=== PATIENT | female | born 1940 | race Caucasian/White ===

== ENCOUNTER 2019-08-06 13:30 | Outpatient (RCR) | payer MEDICARE, SELFPAY ==
--- NOTE | 2019-06-21 14:06 | HP.PTEVAL ---
Patient's Visit Information GENEVA ORDOÑEZ is a 79 year old F referred to Physical Therapy by Bala Downs MD with a diagnosis of vertigo. Date of Evaluation: 06/21/19 Physical Therapist: Jaret Fontaine, BRYANNAT, OCS, CSCS - Visit Plan Frequency: 1-2x /Week Duration: 2-4 Weeks Plan: treated with R Rene, monitor need for further positional...Balance. Oculomotor as needed as positional test was based on dizzyness, not nystagmus. - Subjective Findings: Had vertigo for two or three weeks. Started insidiously. Woke up with it. Getting out of bed made her unsteady and needed to grab the wall. Lasted 15 minutes then wall to get around. Described as unsteady adn lightheaded. Called doctor and tried a couple meds and some walking. Is not improving. No diagnostics. Symptoms comes and goes. Happens if stands up too fast gets dizzy for a number of seconds. Rolling in bed can give her the same feeling. Mobile home is her home and no AD needed. NO falls. Holds on to things. drove her today. Not employed, retired. Sleeping OK most of time. Sleepy with meds. Gets this dizzy feeling daily 3-4x. - Objective Walks slow but steady on firm flat surface. Trasnfers I. ALEXYS is wide. c/s AROM is limited to 25 ext, 45 rotation B with some discomfort. - L hallpike. + R hallpike for asymmetrical dizzyness and treated with R Rene adn then - test. - Balance Scores Functional Gait Assessment Score: 22 % Disability: 26.6700 - Goals Goal 1:: abolish vertigo feeling x 3 days Goal Time Frame: 2-4 Weeks Goal 2:: FGA 25 to reduce fall risk Goal Time Frame: 4-6 Weeks - Rehabilitation Potential Physical Therapy Diagnosis: vertigo possibly BPPV Rehabilitation Potential: Fair - Anticipated Interventions Patient/Client Instruction: Educate patient on: Condition, Plan of Care, Risk Factors For the Purpose of:: To increase tolerance to activity/condition/position Comment: positonal, balance and vestibular as needed. For the Purpose of:: To increase tolerance to activity/condition/position, To improve gait and locomotor functions Thank you for the opportunity to evaluate your patient. For Medicare and Medicare HMO plans, please review the plan of care and approve it. It will need to be FAXED BACK to us at [phone] for Medicare purposes. For Medicare only, by signing this I certify the plan of care. Please let me know if there are questions or concerns regarding this plan of care. Physician Signature: Date:
--- NOTE | 2019-06-25 15:50 | HP.PTREVAL ---
Bala Downs MD, It has been my pleasure to treat GENEVA ORDOÑEZ over the last 2 visits for vertigo. Please see the progress note below for an update on the physical therapy plan of care! Subjective: Not in any pain. Dizzyness is not as bad. Using cane feels steadier. Doesn't feel as dizzy stadning up. Not as consistent dizzyness. No other dizzyness. Unsteady intermittently usually getting out of bed in am. It lasts until she moves a little bit. Objective/Function: - B hallpike and - roll test. Oculomotor is unremarkable: no nystagmus with gaze or head shake, Saccades adn pursuit are challenging but asymptomatic. Vor is asymptomatic and not fast. - skew eye deviation. MSQ positions do not cause her dizzyness today. Feels unsteady today but not dizzy. Walks with cane mod I. Without cane is good today on firm flat surface but hesitant. Plan Plan: 2x/week for 4 weeks to wrok on balance, weight shifting, foam, VOR balance and gait with head mvoements. Progress to HEP as safety allows. Monitor for dizzyness in the form of spinning adn let therapist know if it returns for positional checks Goals Goal 1:: abolish vertigo feeling x 3 days Goal Time Frame: 2-4 Weeks Goal 2:: FGA 25/30 to reduce fall risk Goal Time Frame: 4-6 Weeks Goal Progress: Progressing Anticipated Interventions Patient/Client Instruction: Educate patient on: Condition, Plan of Care, Risk Factors For the Purpose of:: To increase tolerance to activity/condition/position Comment: positonal, balance and vestibular as needed. For the Purpose of:: To increase tolerance to activity/condition/position, To improve gait and locomotor functions Please do not hesitate to contact me at [phone] by phone or if you have questions or concerns regarding this new plan of care! Sincerely, Jaret Fontaine, DPT, OCS, CSCS
--- NOTE | 2019-07-27 15:45 | HP.PTREVAL ---
Bala Downs MD, It has been my pleasure to treat GENEVA ORDOÑEZ over the last 6 visits for vertigo. Please see the progress note below for an update on the physical therapy plan of care! Subjective: Better. No more dizzyness. Balance feels better. Driving now and then short ditances. drove her. Steps at daughters house still require rail. Exercises at home include walking. To doctor month. Would like to make up two sessions then should be good. Objective/Function: +2 FGA. No dizzyness. Doing better. Wants to make up 2 missed visits adn D/C Plan Plan: 2 visits with [employer]PER[employer] to teach home balance adn VOR exercises then will d/c to HEP. Goals Goal 1:: abolish vertigo feeling x 3 days Goal Time Frame: 2-4 Weeks Goal Progress: Goal Met Goal 2:: FGA 25/30 to reduce fall risk Goal Time Frame: 4-6 Weeks Goal Progress: Progressing Anticipated Interventions Patient/Client Instruction: Educate patient on: Condition, Plan of Care, Risk Factors For the Purpose of:: To increase tolerance to activity/condition/position Comment: positonal, balance and vestibular as needed. For the Purpose of:: To increase tolerance to activity/condition/position, To improve gait and locomotor functions Please do not hesitate to contact me at [phone] by phone or if you have questions or concerns regarding this new plan of care! Sincerely, Jaret Fontaine, DPT, OCS, CSCS
== END 2019-08-06 19:00 | disposition home or self-care (01) ==
LOC: PT 13:30
PROVIDERS: Family Provider Internal Medicine; PCP Family Medicine; Referring Provider Family Medicine; Visit Provider Family Medicine
DX: R42 Dizziness and giddiness (principal)
CPT/HCPCS: 97110; 97161; 97530

== ENCOUNTER → 2020-06-15 17:18 | Outpatient (CLI) | payer MEDICARE, SELFPAY | PROVIDERS: PCP Physician Assistant; Referring Provider Registered Nurse; Visit Provider Registered Nurse | DX: Z20.828 Contact with and (suspected) exposure to other viral communicable diseases (principal) | CPT/HCPCS: 87635; C9803; U0003 ==

== ENCOUNTER 2020-10-26 07:37 | Outpatient (RCR) | payer MEDICARE, SELFPAY ==
[2015-12-12 17:49] VITALS: BMI 27.7
[2020-10-26] MEDS: COVID-19 VACC, MRNA(PFIZER)/PF 30 MCG/0.3 ML SYRINGE IM (14:30)
[2020-11-16] MEDS: COVID-19 VACC, MRNA(PFIZER)/PF 30 MCG/0.3 ML SYRINGE IM (14:25)
== END 2021-01-23 23:59 ==
LOC: IMMUN 07:37
PROVIDERS: PCP Physician Assistant; Referring Provider Family Medicine; Visit Provider Family Medicine
DX: Z23 Encounter for immunization (principal)
CPT/HCPCS: 0001A; 0002A; 91300

== ENCOUNTER 2021-06-11 14:35 | Emergency (ER) | payer MEDICARE, SELFPAY ==
[2021-06-11 14:36] VITALS: BP 147/62; PULSE 68; RESP 16; TEMP 36.4; O2SAT 100; BMI 28.3
--- NOTE | 2021-06-11 15:07 | ED.VIS.GI ---
HPI HPI - GI History of Present Illness Chief Complaint: Other, Pain/Inj Detail of Chief Complaint: Hematochezia Informant: patient Abdominal Pain/Flank Pain Onset: Yesterday Context: Sudden Onset Timing: Intermittent Quality: - (Painless bright red blood with bowel movement) Location: - (History of hemorrhoids) Current Severity: Moderate Maximum Severity: Moderate Worsened by: Nothing Relieved by: Nothing Nausea/Vomiting/Emesis GI Symptom: Negative for Nausea and Vomiting Diarrhea/Melena/Hematochezia GI Symptom: Positive for Hematochezia; Negative for Diarrhea and Melena Onset: Yesterday Associated Symptoms Associated Symptoms: Negative for Dysuria, Frequency and Hematuria LMP: Postmenopausal Narrative Narrative: Patient is an 81-year-old woman on a baby aspirin who presents with bright red blood per rectum. First noted yesterday. She does have history of hemorrhoids. She denies history of diverticulosis or diverticulitis. She denies orthostatic symptoms. Denies abdominal pain. Denies rectal pain. She is not complaining of bruising easily. She denies blood in her urine. Denies bleeding of her gums. Prior similar symptoms: Yes Recent Illness/Hospitalization: No PFSH PFSH Allergy/AdvReac Type Severity Reaction Status Date / Time Sulfa (Sulfonamide Allergy Rash Verified 06/11/21 14:37 Antibiotics) Influenza Virus Vaccines AdvReac Other Verified 06/11/21 14:37 Social History (Updated 06/11/21 @ 15:[address] Ihsan Dimas MD) household members: none Smoking Status: Never smoker substance use type: does not use seatbelt use: always ROS ROS ED Constitutional Constitutional ED: Denies chills, fever(s), subjective or sweats Cardiovascular Cardiovascular: Denies chest pain Respiratory/Chest Respiratory/Chest: Denies dyspnea or dyspnea on exertion Gastrointestinal Gastrointestinal: Denies abdominal pain, constipation, diarrhea, melena, nausea or vomiting Genitourinary Genitourinary ED: Denies dysuria, hematuria or urinary frequency Musculoskeletal Musculoskeletal: Denies back pain or neck pain Neurologic Neurologic: Denies paresthesias or weakness Hematologic/Lymphatic Hematologic/Lymphatic: Denies easy bleeding or easy bruising EXAM Physical Exam Const Vital Signs: 06/11/21 14:36 Temperature 97.6 F L Temperature Source Temporal Pulse Rate 68 Respiratory Rate 16 Blood Pressure 147/62 H Blood Pressure Mean 90 Pulse Ox 100 Positive well nourished, well developed and obese; Negative for cachectic, contractures or unkempt General Appearance ED: well developed and NAD; Negative for unkempt, cachectic, contractures or pallor Nutritional Appearance: obese; Negative for cachectic HEENT Reports moist mucous membranes normocephalic and atraumatic Eyes PERRL and EOMs intact bilaterally General Eye ED: Negative for pale conjunctiva or scleral icterus Neck no lymphadenopathy, supple and no JVD Cardio regular rate, regular rhythm, S1 normal heart sound, S2 normal heart sound and no murmurs GI non-tender, non-distended and no masses GI Narrative: Patient has cluster of hemorrhoids. They are not thrombosed. There was no discomfort on rectal exam. Stool is brown. There is no active bleeding noted at this time. Auscultation: normoactive bowel sounds Palpation: soft Back/Spine no CVA tenderness Extremity full ROM General Extremety ED: Negative for edema or tenderness General Extremity: Negative for edema Psych mental status grossly normal Appearance: Negative for unkempt Skin no wounds General Skin Exam: Negative for jaundice or pallor Lesions: no lesions Rashes: no rashes MDM MDM MDM Narrative Medical decision making narrative: Patient presents with hematochezia due to hemorrhoids. Her physicians are affiliated with [facility]. She was referred to Dr. Ro who is on-call for surgery. Work-up is not indicated. Discharge Plan Triage Chief Complaint: Other, Pain/Inj ED Provider: Ihsan Dimas Dx/Rx/DC Orders Clinical Impression: Bleeding external hemorrhoids Instructions: ED Hemorrhoids Primary Care Provider: Argentina Madison Referrals: Basil Ro MD [STAFF PHYSICIAN] - 1-2 Weeks Argentina Madison PA [Primary Care Provider] - Disposition Disposition: Home, Self Care
== END 2021-06-11 15:23 | disposition home or self-care (01) ==
LOC: ED 15:18
PROVIDERS: Emergency Provider Emergency Medicine; PCP Physician Assistant
DX: K64.4 Residual hemorrhoidal skin tags (principal); E66.9 Obesity, unspecified
CPT/HCPCS: 99282

== ENCOUNTER 2022-12-06 09:55 | Observation (INO) | payer MEDICARE, SELFPAY ==
[2022-12-06 09:55] VITALS: BP 170/60; PULSE 85; RESP 20; TEMP 36.9; O2SAT 96; BMI 24.3
--- NOTE | 2022-12-06 10:12 | RAD_ITS ---
STUDY: X-RAY - LEFT KNEE REASON FOR EXAM: Female, 82 years old. Pain following a fall. TECHNIQUE: 4 view(s) of the knee. COMPARISON: None. FINDINGS: Normal visualized distal femur. Normal visualized proximal tibia and fibula. Normal proximal tibiofibular articulation. There is mild degenerative arthrosis of the medial femorotibial compartment. There is mild degenerative arthrosis of the lateral femorotibial compartment. Normal patellofemoral articulation. Chondrocalcinosis of the medial and lateral menisci. The soft tissue structures are unremarkable. RAD/Knee 3 Views IMPRESSION: Degenerative arthrosis. Chondrocalcinosis of the medial and lateral menisci. Electronically Signed: Errol Samano MD at 10:53 EDT ,
--- NOTE | 2022-12-06 10:14 | ED.VIS.FALL ---
HPI HPI - Fall History of Present Illness Chief Complaint: Fall Detail of Chief Complaint: Fell at home getting up from a chair in her kitchen. Informant: patient and EMS Occured/Mechanism Occurred: Today and Hours Mechanism/Context: Yes same level fall and Yes cannot recall fall Pain/Injury Pain Location: head and lower extremity Quality of Pain: Dull and Aching Current Severity: Mild Maximum Severity: Mild Narrative Narrative: 82-year-old female history of hypertension. Lives at home with her . Today was at the breakfast table. She went to stand up and think she lost her balance landed on the kitchen floor which is carpeted on her knees and and fell back and hit her head. She thinks she hit her head on the floor. No LOC. No blood thinners. She does have a laceration. She is complaining of knee discomfort. Denies any neck pain. Denies any recent illness or hospitalization. Tetanus Immunization: >10 years Prior similar symptoms: No Recent Illness/Hospitalization: No PFSH PFSH Medical History (Updated 12/06/22 @ 15:[address] Anselmo Santana MD) Fall Allergy/AdvReac Type Severity Reaction Status Date / Time Sulfa (Sulfonamide Allergy Rash Verified 12/06/22 09:55 Antibiotics) Influenza Virus Vaccines AdvReac Other Verified 12/06/22 09:55 Social History household members: none Smoking Status: Never smoker substance use type: does not use seatbelt use: always ROS ROS ED ROS Narrative Denies recent illness. Review of Systems ROS Unobtainable: Denies due to encephalopathy Constitutional Constitutional ED: Denies chills or fever(s) Eyes Eyes: Denies blurry vision ENT ENT ED: Denies ear pain Cardiovascular Cardiovascular: Denies chest pain Respiratory/Chest Respiratory/Chest: Denies cough Gastrointestinal Gastrointestinal: Denies abdominal pain Genitourinary Genitourinary ED: Denies dysuria Musculoskeletal Musculoskeletal: Denies arthralgias, back pain or neck pain Integumentary Denies abscess Neurologic Neurologic: Denies headache(s) Psychiatric Psychiatric: Denies anxiety or depression Hematologic/Lymphatic Hematologic/Lymphatic: Denies easy bleeding Allergic/Immunologic Allergic/Immunologic ED: Denies mouth swelling EXAM Physical Exam Narrative Exam Narrative: 82-year-old female no acute distress. Vital signs stable afebrile. She is in the room alone. H EENT exam pupils round reactive light. She has dried blood on her scalp and hair I cannot currently see the laceration at this will need to be cleaned off the final laceration evaluated better. There is no facial trauma. Dentition intact. Pupils round reactive light. C-spine nontender. Trachea midline. Back spine nontender posterior ribs nontender. No signs of trauma. Chest wall and ribs nontender. Lungs are clear. Heart regular rhythm no murmur rate about 85. Abdomen soft nontender. Pelvic girdle intact. Normal financial foundations associate strength. Wrist, elbows and shoulders are nontender without deformity. Hips ankles and feet are nontender normal dorsi plantarflexion. She has tenderness and redness to both knees anteriorly. No gross bony deformity. Limited flexion due to discomfort. Neurologically she is awake and alert. Answering questions and following commands. Const Vital Signs: 12/06/22 09:55 12/06/22 10:23 12/06/22 12:02 Temperature 98.5 F Temperature Source Oral Pulse Rate 85 87 Respiratory Rate 20 H 16 Respiratory Effort Normal Non-Labored Respiratory Depth Normal Respiratory Pattern Normal Blood Pressure 170/60 H 162/78 H Blood Pressure Mean 96 106 Pulse Ox 96 98 Oxygen Delivery Method Room Air 12/06/22 14:47 Temperature 97.8 F Temperature Source Oral Pulse Rate 76 Respiratory Rate 18 Respiratory Effort Respiratory Depth Respiratory Pattern Blood Pressure 175/62 H Blood Pressure Mean 99 Pulse Ox 97 Oxygen Delivery Method Room Air Positive well nourished and well developed; Negative for cachectic, contractures or unkempt General Appearance ED: well developed and NAD; Negative for unkempt, cachectic or contractures Nutritional Appearance: Negative for cachectic HEENT Reports normocephalic HEENT Narrative: Scalp laceration. Dried blood. trauma; Negative for atraumatic Eyes PERRL and EOMs intact bilaterally General Eye ED: Negative for pale conjunctiva or scleral icterus Neck full ROM, no lymphadenopathy and supple General: Negative for tenderness Chest Wall inspection of chest normal and palpation of chest normal Chest: Negative for other Resp normal respiratory effort, no retractions and clear to auscultation bilaterally Effort and Inspection: Negative for pain with movement Auscultation: Negative for rales, rhonchi or wheezes Cardio regular rate, regular rhythm, S1 normal heart sound, S2 normal heart sound and no murmurs Rate: Negative for bradycardia or tachycardic Rhythm: Negative for abnormal rhythm GI non-tender, non-distended and no masses Inspection: Negative for abdominal distention Auscultation: normoactive bowel sounds Palpation: soft; Negative for guarding Back/Spine no CVA tenderness General Back: Negative for CVA tenderness Cervical Spine: Negative for cervical spine tenderness Lumbar Spine / Lower Back: Negative for lumbar spinal tenderness or paraspinal muscle tenderness Neuro moves all extremities and no focal motor deficits Sensorium / Orientation: alert, oriented to person and oriented to place Motor Exam: strength 5/5 throughout Psych mental status grossly normal and thought process normal Appearance: Negative for unkempt Attitude: No agitated Mood & Affect: Negative for depressed, anxious or tearful Skin Skin Narrative: Scalp laceration. Lesions: no lesions Rashes: no rashes Trauma: laceration MDM MDM MDM Narrative Medical decision making narrative: 82-year-old fell at home hit her head causing a scalp laceration. Also injuring both knees. CAT scan of her brain will be obtained to rule out intracranial bleed. X-rays of knees will be obtained to rule out fracture. We will clean her scalp reevaluate the laceration determine if it needs suture repaired. Her tetanus is being updated. Patient will eventually be ambulated to see if she is strong enough to walk to determine if she will be able to be discharged home. After I repaired the patient's scalp laceration the nurses got up and ambulated her. Patient needed a lot of assistance. I walking back to the room she got weak, her knees buckled and the nurses lowered her to the floor. She did not fall or get injured but they said she was too weak to stand on her own. They were able to get her back in bed. Screening labs are being obtained. Given the elevated white counts the hospitalist wanted me to obtain urinalysis and chest x-ray which are being ordered. Due to the patient's dehydration she will be given a liter of normal saline. She will be admitted to a medical floor. I discussed test results with the patient and her . He is now present in the room. We attempted to admit the patient to the transitional care unit but were unable due to her insurance status. community organization worker was consulted and that is what was determined. History & Record Review Discussion w/independent historian: EMS personnel and Patient Lab Data Attestation: I reviewed the patient's lab results. Lab results narrative: CBC shows a white count 18.4. H&H 15 and 44. Platelets 316. Electrolytes show a gap of 4. BUN is elevated 29 creatinine of 1 consistent with mild dehydration. Glucose 132. Chest x-ray negative. Urine 5-10 red cells. 10-25 white cells. No epithelial cells. 3+ bacteria consistent with UTI. Culture will be sent. Labs: Laboratory Results - last 24 hr 12/06/22 12/06/22 12/06/22 12:35 12:35 14:40 WBC 18.4 H RBC 4.65 Hgb 15.0 Hct 44.0 MCV 94.6 MCH 32.3 H MCHC 34.1 RDW Std Deviation 46.3 H RDW Coeff of Lisa 13.4 Plt Count 316 MPV 10.6 Immature Gran % (Auto) 0.500 Neut % (Auto) 89.9 H Lymph % (Auto) 3.7 L [place] % (Auto) 5.7 Eos % (Auto) 0.0 Baso % (Auto) 0.2 Absolute Neuts (auto) 16.6 H Absolute Lymphs (auto) 0.68 L Nucleated RBC % 0 Sodium 141 Potassium 3.8 Chloride 109 H Carbon Dioxide 28.0 Anion Gap 4 L BUN 29 H Creatinine 1.01 Estim Creat Clear Calc 37.72 Est GFR (MDRD) Af Amer 68 Est GFR (MDRD) Non-Af 56 L BUN/Creatinine Ratio 28.7 H Glucose 132 H Calcium 10.5 H Urine Color Yellow Urine Clarity Sl. Cloudy Urine pH 5.0 Ur Specific [place] 1.030 Urine Protein 500 H Urine Glucose (UA) 50 H Urine Ketones 50 H Urine Occult Blood 250 H Urine Nitrite Negative Urine Bilirubin 1 H Urine Urobilinogen Normal Ur Leukocyte Esterase 25 H Urine RBC 5-10 SEEN Urine WBC 10-25 SEEN Ur Squamous Epith Cells 0-5 SEEN Urine Bacteria 3+ Hyaline Casts 5-10 SEEN Urine Mucus 0 SEEN Radiography Chest X-Ray - ED: 1 View, Read by ED Physician, Normal, Heart, Lungs, Mediastinum, Bony Structures, No Acute Disease and Chronic Changes Diagnostic Testing: Clinical Impression(s) from Imaging Studies Knee X-Ray 12/06/22 10:12 IMPRESSION: Degenerative arthrosis. Chondrocalcinosis of the medial and lateral menisci. Electronically Signed: Errol Samano MD at 10:53 EDT , Knee X-Ray 12/06/22 10:16 IMPRESSION: Degenerative arthrosis. Chondrocalcinosis of the medial and lateral menisci. Electronically Signed: Errol Samano MD at 10:52 EDT , Brain CT 12/06/22 10:35 IMPRESSION: Chronic involutional changes of the brain. Electronically Signed: Errol Samano MD at 10:51 EDT , Chest X-Ray 12/06/22 13:59 IMPRESSION: No acute abnormality is seen. Electronically Signed: Errol Samano MD at 14:14 EDT , Right knee x-ray, interpreted by myself and the radiologist. Shows chronic changes no acute fracture. 3 views. Left knee x-ray, interpreted by myself and the radiologist shows chronic changes no acute fracture. 3 views. Chest x-ray, portable, single view, interpreted by myself shows no acute abnormality. Normal cardiac silhouette mediastinum. No infiltrates. Procedures Lacerations Right lateral, frontal forehead laceration approximately 1-1/2 to 2 inches: Length: 2 in Depth: Sub Q Shape: Linear Prep: Dot-Angela Laceration repair: Irrigated, Lidocaine, Local, Wound explored and - (6 kirk placed. Proper hemostasis and wound closure was obtained. Patient tolerated the procedure well.) Comment: Right frontal, forehead laceration. Approximately 1 and half to 2 inches. Local anesthetized with lidocaine. Cleaned with Shur-Clens. Washed and irrigated with saline. Explored. Involve the skin and subcu tissue. No foreign body. No bony step-off. No pulsatile bleeding. Closed using kirk. Tolerated well. Discharge Plan Triage Chief Complaint: Fall ED Provider: Anselmo Santana Dx/Rx/DC Orders Clinical Impression: Fall, Head injury, Laceration of scalp, Contusion of right knee, Contusion of left knee, Leukocytosis, Adult failure to thrive, Unable to ambulate, Urinary tract infection Instructions: ED Contusion, Lower Extremity, ED Head Injury (Adult), ED Laceration: All Closures Primary Care Provider: Argentina Madison Referrals: Argentina Madison, PA [Primary Care Provider] - 10 Day for suture removal Activity Restrictions/Additional Instructions: Keep the laceration on your right forehead clean. Clean daily with soap and water. Tylenol for pain. Ice to your knees. Your knee x-rays were okay there was nothing broken. The CAT scan of your brain looked good. There is no bleeding. We stapled the laceration of your right forehead. The kirk should come out no sooner than 7 days and no later than 10 days. Disposition Disposition: Home, Self Care
--- NOTE | 2022-12-06 10:16 | RAD_ITS ---
STUDY: X-RAY - RIGHT KNEE REASON FOR EXAM: Female, 82 years old. Pain following a fall. Anterior soft tissue abrasions. TECHNIQUE: 4 view(s) of the knee. COMPARISON: None. FINDINGS: Normal visualized distal femur. Normal visualized proximal tibia and fibula. Normal proximal tibiofibular articulation. There is mild degenerative arthrosis of the medial femorotibial compartment. Normal lateral femorotibial compartment. Normal patellofemoral articulation. Chondrocalcinosis of the medial and lateral menisci. The soft tissue structures are unremarkable. RAD/Knee 3 Views IMPRESSION: Degenerative arthrosis. Chondrocalcinosis of the medial and lateral menisci. Electronically Signed: Errol Samano MD at 10:52 EDT ,
[2022-12-06] MEDS: Diphth,Pertuss(Acell),Tet Vac 0.5 ML Vial IM (10:19)
--- NOTE | 2022-12-06 10:35 | CT_ITS ---
STUDY: CT BRAIN WITHOUT CONTRAST REASON FOR EXAM: Female, 82 years old. Head injury RADIATION DOSAGE (If Supplied By Facility): CTDIvol = ( 44.99 ) mGy, DLP = ( 812.98 ) mGycm TECHNIQUE: Transaxial CT imaging of the brain was performed without administration of intravenous contrast material. Individualized dose optimization techniques were used for this CT. COMPARISON: Comparison is made with prior examination November 21, 2012. FINDINGS: Normal soft tissue structures. There is hyperostosis frontalis internus. There is mild cerebral atrophy with widening of the extra-axial spaces and ventricular dilatation. Normal white matter tracts of the cerebral hemispheres. There are small punctate calcifications of the basal ganglia which are seen in the aging brain as a normal variant. Normal brainstem. Normal cerebellum. There is no intracranial hemorrhage. There are no findings of an acute ischemic infarction. Normal visualized paranasal sinuses. CT/Brain/Head without Contrast IMPRESSION: Chronic involutional changes of the brain. Electronically Signed: Errol Samano MD at 10:51 EDT ,
[2022-12-06 12:02] VITALS: BP 162/78; PULSE 87; RESP 16; O2SAT 98
[2022-12-06 12:56] LABS: Absolute Lymphocyte Count 0.68 X10^3/uL (0.83-4.51); Absolute Neutrophil Count 16.6 X10^3/uL (2.0-7.7); Basophil# 0.03 X10^3/uL; Basophil% 0.2 % (0-1); Lymphocyte # 0.68 X10^3/ul (0.83-4.51); Lymphocyte % 3.7 % (19-41); Mean Corp Hgb Conc 34.1 g/dL (32-36); Mean Corpuscular Hgb 32.3 pg (27.0-32.0); Mean Corpuscular Volume 94.6 fL (81-99); Mean Platelet Vol. 10.6 fl (6.2-12.0); Monocyte# 1.05 X10^3/uL; Monocyte% 5.7 % (0-10); NRBC Flagged by Analyzer 0 % (0-5); Neutrophil # 16.57 X10^3/uL (2.7-7.7); Neutrophil % 89.9 % (47-70); Platelet Count 316 K/mm3 (150-450); RBC Distribution Width CV 13.4 % (11.6-14.6); RBC Distribution Width SD 46.3 fl (35.1-43.9); Red Blood Count 4.65 M/mm3 (4.2-5.4); White Blood Count 18.4 K/mm3 (4.4-11.0)
--- NOTE | 2022-12-06 13:02 | ED.RN ---
social work saw pt. evaulated, needs precert for inpt therapy. dr vaughan aware to admitt
[2022-12-06 13:08] LABS: Anion Gap 4 (5-15); BUN 29 mg/dL (7-18); BUN/Creat Ratio 28.7 RATIO (10-20); Calcium,Total 10.5 mg/dL (8.5-10.1); Chloride 109 mmol/L (98-107); Creatinine, Serum 1.01 mg/dL (0.55-1.02); EST Glomerular Filtration Rate 56 mL/min (>60); Est Glom Filt Rate - Afr Amer 68 mL/min (>60); Estimated Creatinine Clearance 37.72 ml/min; Glucose 132 mg/dL (74-106); Potassium 3.8 mmol/L (3.5-5.1); Sodium Level 141 mmol/L (136-145)
--- NOTE | 2022-12-06 13:40 | HP.PCM.HOS_ITS ---
HPI - General General Date of Admission: 12/06/22 Date of Service: 12/06/22 HPI Narrative GENEVA ORDOÑEZ, is a 82 F with a PMH as outlined who presents via the ED on 12/06/2022 with a complaint of mechanical fall. She lives at home with her and tried getting up from the breakfast table. she thinks she lost her balance and fell down. She initially landed on her knees then fell over and hit her head. She thinks she hit her head on the floor. She denied any dizziness, lightheadedness, palpitations, nausea, vomiting or diuarrhea. She is not on any blood thinner. She did sustain a laceration on her head. Review of systems was otherwise negative. Vitals were BP of 162/78, WV of 87, RR of 16 and she was saturating at 98% on room air. CBC showed Hb of 15, wbc of 18.4 and platelets of 316. Chemistry showed sodium of 141, potassium of 3.8, Cr is 1 and BUN is 29. Calcium was 10.5. Plan was to discharge patient home, but she was very weak with ambulation, so decision was made to admit her. She is being admitted to be managed for debility due to mechanical fall. [facility], [facility] Medical History (Updated 12/06/22 @ 16:06 by Nata Villanueva) Dementia Fall Former smoker HTN (hypertension) Vision loss of left eye Vision loss of right eye Allergy/AdvReac Type Severity Reaction Status Date / Time Sulfa (Sulfonamide Allergy Rash Verified 12/06/22 09:55 Antibiotics) Influenza Virus Vaccines AdvReac Other Verified 12/06/22 09:55 Surgical History (Updated 12/06/22 @ 15:56 by Nata Villanueva) History of appendectomy Social History household members: none Smoking Status: Former smoker substance use type: does not use seatbelt use: always ROS Constitutional Constitutional: Reports fatigue, malaise and weakness; Denies anorexia, chills or fever(s) Eyes Eyes: Denies change in vision ENT HEENT: Denies dysphagia, headache(s) or nasal discharge Cardiovascular Cardiovascular: Denies chest pain, dyspnea on exertion, edema, lightheadedness, orthopnea, paroxysmal nocturnal dyspnea, rapid heart rate or syncope Gastrointestinal Gastrointestinal: Denies abdominal pain, constipation, diarrhea, nausea or vomit ing Genitourinary Genitourinary: Denies dysuria or urinary frequency Musculoskeletal Musculoskeletal: Denies arthralgias, back pain or joint pain Neurologic Neurologic: Denies confusion, dizziness, focal weakness or seizures Psychiatric Psychiatric: Denies anxiety or depression Hematologic/Lymphatic Hematologic/Lymphatic: Denies anemia Vital Signs Vital Signs Vital Signs: 12/06/22 09:55 12/06/22 10:23 12/06/22 12:02 Temperature 98.5 F Temperature Source Oral Pulse Rate 85 87 Respiratory Rate 20 H 16 Respiratory Effort Normal Non-Labored Respiratory Depth Normal Respiratory Pattern Normal Blood Pressure 170/60 H 162/78 H Blood Pressure Mean 96 106 Pulse Ox 96 98 Oxygen Delivery Method Room Air Weight Weight: 141 lb 12.116 oz Body Mass Index (BMI) 24.3 Physical Exam Const alert, oriented x3 and no apparent distress General Appearance: cooperative HEENT normocephalic HEENT Narrative: has a small laceration on the right temporal scalp region, which has been stapled. Eyes PERRL, EOMs intact bilaterally and conjunctivae normal Neck no lymphadenopathy, supple and no JVD Resp normal respiratory effort, no retractions, no use of accessory muscles and clear to auscultation bilaterally Cardio regular rate, regular rhythm, S1 normal heart sound, S2 normal heart sound and no murmurs GI normal to inspection, nondistended, normoactive bowel sounds, soft to palpation, non-tender and non-distended Extremity normal to inspection, full ROM and no clubbing, cyanosis or edema Neuro oriented x3, CN's II-XII intact bilaterally and moves all extremities Sensorium / Orientation: awake and alert Motor Exam: strength 5/5 throughout Psych affect normal Results Lab / Micro Data Result Diagrams: 12/06/22 12:35 12/06/22 12:35 Labs: Laboratory Results - last 24 hr 12/06/22 12:35: WBC 18.4 H, RBC 4.65, Hgb 15.0, Hct 44.0, MCV 94.6, MCH 32.3 H, MCHC 34.1, RDW Std Deviation 46.3 H, RDW Coeff of Lisa 13.4, Plt Count 316, MPV 10.6, Immature Gran % (Auto) 0.500, Neut % (Auto) 89.9 H, Lymph % (Auto) 3.7 L, [place] % (Auto) 5.7, Eos % (Auto) 0.0, Baso % (Auto) 0.2, Absolute Neuts (auto) 16.6 H, Absolute Lymphs (auto) 0.68 L, Nucleated RBC % 0 12/06/22 12:35: Sodium 141, Potassium 3.8, Chloride 109 H, Carbon Dioxide 28.0, Anion Gap 4 L, BUN 29 H, Creatinine 1.01, Estim Creat Clear Calc 37.72, Est GFR (MDRD) Af Amer 68, Est GFR (MDRD) Non-Af 56 L, BUN/Creatinine Ratio 28.7 H, Glucose 132 H, Calcium 10.5 H Radiology Impression Knee X-Ray 12/06/22 10:12 IMPRESSION: Degenerative arthrosis. Chondrocalcinosis of the medial and lateral menisci. Electronically Signed: Errol Samano MD at 10:53 EDT , Knee X-Ray 12/06/22 10:16 IMPRESSION: Degenerative arthrosis. Chondrocalcinosis of the medial and lateral menisci. Electronically Signed: Errol Samano MD at 10:52 EDT , Brain CT 12/06/22 10:35 IMPRESSION: Chronic involutional changes of the brain. Electronically Signed: Errol Samano MD at 10:51 EDT , Assessment & Plan Assessment/Plan (1) Head injury: (2) Laceration of scalp: (3) Fall: PLAN: Plan #Debility due to mechanical fall * says her knees gave way and she fell whilst getting up from the breakfast table * she denied any dizziness, lightheadedness or passing out * sustained a scalp laceration which has been sutured * consult PT/OT * fall precautions * * #RIght scalp laceration * due to mechanical fall * laceration sutured * PO tylenol and PO oxycodone prn for pain * #Mild hypercalcemia: Calcium is 10.5. Likely due to dehydration. Hydrate fluids and trend. DVT prophylaxis: SCDs CODE STATUS: Full code * Patient counseled extensively about different types of CODE STATUS including full code, DNR CCA and DNR CCA. Patient elects to be full code. * Total kltz-ce-isar time 17 minutes. Total time spent on evaluation and management of patient, reviewing chart and specialist notes, discussing plan with patient and his , discussion with nursing and ancillary staff as well as documentation: 65 mins Charges/Coding Visit Charges Inpatient E&M: 29944 Init Hosp L2 Procedures Hospitalists Procedures: 12661 Advncd Care Plan 30 Min
--- NOTE | 2022-12-06 13:59 | RAD_ITS ---
STUDY: X-RAY CHEST REASON FOR EXAM: Female, 82 years old. Weakness TECHNIQUE: Single AP portable view of the chest. COMPARISON: Comparison is made with prior chest radiograph dated December 12, 2015. FINDINGS: The lungs are clear and expanded. There is no demonstrated pleural abnormality. Normal size heart. Normal mediastinum and lynn. Normal visualized pulmonary arteries. There is atherosclerotic calcification of the aortic arch with tortuosity. There are diffuse degenerative changes of the visualized thoracic spine. Normal visualized ribs, clavicles, and shoulders. There is no demonstrated abnormality of the visualized soft tissue structures of the upper abdomen. RAD/Chest 1 View (Portable) IMPRESSION: No acute abnormality is seen. Electronically Signed: Errol Samano MD at 14:14 EDT ,
[2022-12-06] MEDS: 0.9% Normal Saline 1,000 ML 999 ML IV (14:45)
[2022-12-06 14:46] LABS: Mucous, Urine 0 SEEN /hpf (<or=2+)
[2022-12-06 14:47] VITALS: BP 175/62; PULSE 76; RESP 18; TEMP 36.6; O2SAT 97
[2022-12-06 14:50] LABS: Color, Urine Yellow (Yellow); Glucose, Dipstick 50 mg/dl (Normal); Ketone-Dipstick 50 mg/dl (Negative); Leukocyte Esterase-Dipstick 25 /ul (Negative); Nitrite-Dipstick Negative (Negative); Occult Blood-Urine 250 /ul (Negative); Protein-Dipstick 500 mg/dl (Negative); Urine Clarity Sl. Cloudy (Clear); Urine Urobilinogen Normal (Normal)
[2022-12-06 14:52] LABS: Urine Bilirubin Dipstick 1 mg/dL (Negative)
[2022-12-06 14:55] LABS: White Blood Cells 10-25 SEEN /hpf (0-5)
[2022-12-06 14:56] LABS: Bacteria 3+ /hpf (None Seen); Hyaline Cast 5-10 SEEN /lpf (0-5); Red Blood Cells-Urine 5-10 SEEN /hpf (0-5); Squamous Epithelial Cells - UA 0-5 SEEN /hpf (5-10)
[2022-12-06] MEDS: Ciprofloxacin 500 MG Tablet PO (15:13)
[2022-12-06] MEDS: Lidocaine 1% (20 ml mdv) 20 ML Vial 10 ML INFILT (15:14)
[2022-12-06 15:45] VITALS: BP 137/83; PULSE 78; RESP 18; TEMP 36.7; O2SAT 99
[2022-12-06 15:47] VITALS: BMI 23.0
[2022-12-06] MEDS: 0.9% Normal Saline 1,000 ML 125 ML IV (19:57)
[2022-12-06] MEDS: Acetaminophen 325 MG Tablet 650 MG PO (20:05)
[2022-12-06 20:25] VITALS: BP 176/64; PULSE 90; RESP 18; TEMP 37.1; O2SAT 95
[2022-12-06] MEDS: Lisinopril 40 MG Tablet PO (20:37)
[2022-12-06] MEDS: Donepezil HCl 5 MG Tablet PO (20:37)
[2022-12-06] MEDS: traZODone 50 MG Tablet PO (20:37)
[2022-12-06] MEDS: Vitamin E 400 UNITS Capsule PO (20:37)
[2022-12-06] MEDS: amLODIPine 5 MG Tablet PO (20:37)
[2022-12-06] MEDS: Atorvastatin Calcium 10 MG Tablet 5 MG PO (20:38)
[2022-12-06] MEDS: Atenolol 100 MG Tablet PO (20:38)
[2022-12-06 22:14] VITALS: BP 139/55; PULSE 75
[2022-12-07 02:35] VITALS: BP 158/58; PULSE 75; RESP 18; TEMP 36.7; O2SAT 95
[2022-12-07] MEDS: 0.9% Normal Saline 1,000 ML 125 ML IV (03:49)
[2022-12-07 06:51] VITALS: BP 149/55; PULSE 67; RESP 18; TEMP 36.5; O2SAT 97
[2022-12-07 07:55] LABS: Absolute Lymphocyte Count 1.93 X10^3/uL (0.83-4.51); Absolute Neutrophil Count 10.6 X10^3/uL (2.0-7.7); Basophil# 0.02 X10^3/uL; Basophil% 0.1 % (0-1); Eosinophil# 0.02 X10^3/uL; Eosinophils% 0.1 % (0-5); Hematocrit 35.9 % (37-47); Lymphocyte # 1.93 X10^3/ul (0.83-4.51); Lymphocyte % 14.1 % (19-41); Mean Corp Hgb Conc 33.4 g/dL (32-36); Mean Corpuscular Hgb 32.5 pg (27.0-32.0); Mean Corpuscular Volume 97.3 fL (81-99); Mean Platelet Vol. 10.4 fl (6.2-12.0); Monocyte# 1.05 X10^3/uL; Monocyte% 7.7 % (0-10); NRBC Flagged by Analyzer 0 % (0-5); Neutrophil # 10.62 X10^3/uL (2.7-7.7); Neutrophil % 77.7 % (47-70); Platelet Count 233 K/mm3 (150-450); RBC Distribution Width CV 13.9 % (11.6-14.6); RBC Distribution Width SD 49.2 fl (35.1-43.9); Red Blood Count 3.69 M/mm3 (4.2-5.4); White Blood Count 13.7 K/mm3 (4.4-11.0)
[2022-12-07 08:00] VITALS: BP 161/60; PULSE 66; RESP 18; TEMP 36.7; O2SAT 96
[2022-12-07 08:11] LABS: Anion Gap 2 (5-15); BUN 26 mg/dL (7-18); BUN/Creat Ratio 36.7 RATIO (10-20); Calcium,Total 8.6 mg/dL (8.5-10.1); Chloride 115 mmol/L (98-107); Creatinine, Serum 0.71 mg/dL (0.55-1.02); EST Glomerular Filtration Rate 84 mL/min (>60); Est Glom Filt Rate - Afr Amer 102 mL/min (>60); Glucose 98 mg/dL (74-106); Potassium 3.5 mmol/L (3.5-5.1); Sodium Level 143 mmol/L (136-145)
[2022-12-07] MEDS: Vitamin E 400 UNITS Capsule PO ×2 (08:20→18:16)
[2022-12-07] MEDS: Cholecalciferol (VIT D3) 25 MCG TABLET (1,000 UNITS) 50 MCG PO (08:20)
[2022-12-07] MEDS: Atenolol 100 MG Tablet PO (08:21)
[2022-12-07] MEDS: amLODIPine 5 MG Tablet PO (08:21)
[2022-12-07] MEDS: hydroCHLOROthiazide 25 MG Tablet PO (08:21)
[2022-12-07] MEDS: Lisinopril 40 MG Tablet PO (08:21)
[2022-12-07] MEDS: Pantoprazole Sodium 20 MG Tablet PO (08:21)
[2022-12-07] MEDS: Ceftriaxone 1 GM/50 ML BAG IV (10:08)
--- NOTE | 2022-12-07 10:25 | PN_ITS ---
Subjective Subjective Patient seen and examined. She had no active complaints today. She had an uneventful night. Review of systems otherwise negative. She has remained hemodynamically stable. Urinalysis showed 3+ bacteria so I have started her on IV ceftriaxone this morning. Objective Data Objective Data Vital Signs: Vital Signs Temp Pulse Resp BP Pulse Ox O2 Del Method 98.1 F 66 18 161/60 H 96 Room Air 12/07/22 08:00 12/07/22 08:00 12/07/22 08:00 12/07/22 08:00 12/07/22 08:00 12/07/22 08:00 Oxygen Delivery Method Room Air Weight: 134 lb 3.2 oz Body Mass Index (BMI) 23.0 Intake & Output: Intake and Output for Last 24 Hours 12/05/22 12/06/22 12/07/22 23:59 23:59 23:59 Intake Total 1450 / 1450 983.33 / 983.33 Output Total 250 / 250 Balance 1450 / 1450 733.33 / 733.33 Lab / Micro Data Result Diagrams: 12/07/22 07:50 12/07/22 07:50 Labs: Laboratory Results - last 24 hr 12/06/22 12:35: WBC 18.4 H, RBC 4.65, Hgb 15.0, Hct 44.0, MCV 94.6, MCH 32.3 H, MCHC 34.1, RDW Std Deviation 46.3 H, RDW Coeff of Lisa 13.4, Plt Count 316, MPV 10.6, Immature Gran % (Auto) 0.500, Neut % (Auto) 89.9 H, Lymph % (Auto) 3.7 L, [place] % (Auto) 5.7, Eos % (Auto) 0.0, Baso % (Auto) 0.2, Absolute Neuts (auto) 16.6 H, Absolute Lymphs (auto) 0.68 L, Nucleated RBC % 0 12/06/22 12:35: Sodium 141, Potassium 3.8, Chloride 109 H, Carbon Dioxide 28.0, Anion Gap 4 L, BUN 29 H, Creatinine 1.01, Estim Creat Clear Calc 37.72, Est GFR (MDRD) Af Amer 68, Est GFR (MDRD) Non-Af 56 L, BUN/Creatinine Ratio 28.7 H, Glucose 132 H, Calcium 10.5 H 12/06/22 14:40: Urine Color Yellow, Urine Clarity Sl. Cloudy, Urine pH 5.0, Ur Specific [place] 1.030, Urine Protein 500 H, Urine Glucose (UA) 50 H, Urine Ketones 50 H, Urine Occult Blood 250 H, Urine Nitrite Negative, Urine Bilirubin 1 H, Urine Urobilinogen Normal, Ur Leukocyte Esterase 25 H, Urine RBC 5-10 SEEN, Urine WBC 10-25 SEEN, Ur Squamous Epith Cells 0-5 SEEN, Urine Bacteria 3+, Hyaline Casts 5-10 SEEN, Urine Mucus 0 SEEN 12/07/22 07:50: WBC 13.7 H, RBC 3.69 L, Hgb 12.0, Hct 35.9 L, MCV 97.3, MCH 32.5 H, MCHC 33.4, RDW Std Deviation 49.2 H, RDW Coeff of Lisa 13.9, Plt Count 233, MPV 10.4, Immature Gran % (Auto) 0.300, Neut % (Auto) 77.7 H, Lymph % (Auto) 14.1 L, [place] % (Auto) 7.7, Eos % (Auto) 0.1, Baso % (Auto) 0.1, Absolute Neuts (auto) 10.6 H, Absolute Lymphs (auto) 1.93, Nucleated RBC % 0 12/07/22 07:50: Sodium 143, Potassium 3.5, Chloride 115 H, Carbon Dioxide 26.0, Anion Gap 2 L, BUN 26 H, Creatinine 0.71, Estim Creat Clear Calc 38.10, Est GFR (MDRD) Af Amer 102, Est GFR (MDRD) Non-Af 84, BUN/Creatinine Ratio 36.7 H, Glucose 98, Calcium 8.6 Radiography Diagnostic Testing: Radiology Impression Knee X-Ray 12/06/22 10:12 IMPRESSION: Degenerative arthrosis. Chondrocalcinosis of the medial and lateral menisci. Electronically Signed: Errol Samano MD at 10:53 EDT , Knee X-Ray 12/06/22 10:16 IMPRESSION: Degenerative arthrosis. Chondrocalcinosis of the medial and lateral menisci. Electronically Signed: Errol Samano MD at 10:52 EDT , Brain CT 12/06/22 10:35 IMPRESSION: Chronic involutional changes of the brain. Electronically Signed: Errol aSmano MD at 10:51 EDT , Chest X-Ray 12/06/22 13:59 IMPRESSION: No acute abnormality is seen. Electronically Signed: Errol Samano MD at 14:14 EDT , Physical Exam Const alert, oriented x3 and no apparent distress General Appearance: cooperative HEENT normocephalic and head/scalp atraumatic HEENT Narrative: suture over right temporal scalp Eyes PERRL, EOMs intact bilaterally and conjunctivae normal Neck no lymphadenopathy, supple and no JVD Resp normal respiratory effort, normal air movement, no retractions, no use of accessory muscles and clear to auscultation bilaterally Cardio regular rate, regular rhythm, S1 normal heart sound, S2 normal heart sound and no murmurs GI normal to inspection, nondistended, normoactive bowel sounds, soft to palpation, non-tender and non-distended Extremity normal to inspection, full ROM, normal capillary refill and no clubbing, cyanosis or edema Skin General Skin Exam: no breakdown Neuro oriented x3, CN's II-XII intact bilaterally and moves all extremities Sensorium / Orientation: awake and alert Motor Exam: strength 5/5 throughout Psych affect normal Appearance: appropriate Assessment & Plan Assessment/Plan (1) Head injury: (2) Laceration of scalp: (3) Fall: PLAN: Plan #Debility due to mechanical fall * says her knees gave way and she fell whilst getting up from the breakfast table * she denied any dizziness, lightheadedness or passing out * sustained a scalp laceration which has been sutured * PT/OT on board. * fall precautions * #UTI * urinalysis showed 3+ bacteria * started on IV ceftriaxone * urine culture ordered * #RIght scalp laceration * due to mechanical fall * laceration sutured * PO tylenol and PO oxycodone prn for pain * #Mild hypercalcemia: due to dehydration. improved with IVF administration and is now down to 8.6. DVT prophylaxis: SCDs CODE STATUS: Full code * Patient counseled extensively about different types of CODE STATUS including full code, DNR CCA and DNR CCA. Patient elects to be full code. * Total time spent on evaluation and management of patient, reviewing chart and specialist notes, discussing plan with patient and his , discussion with nursing and ancillary staff as well as documentation: 40 mins Charges/Coding Visit Charges Inpatient E&M: 67320 Subs Hosp L2
[2022-12-07 14:00] VITALS: BP 173/58; PULSE 65; RESP 18; TEMP 36.4; O2SAT 96
--- NOTE | 2022-12-07 14:25 | CASEMGMT ---
Social Work SW met with patient regarding discharge planning. A list of SNF providers including quality and resource use data and consistent with patient?s preferred geographic region, medical needs, and insurance network were provided from the [employer] [facility]. Patient's daughter and present. Daughter reports concerns over patient's loss of memory over the last few months. Daughter reports patient and spouse were helping to care for one another at home and spouse uses walker, cane and wheelchair at times. Patient was primarily independent at home caring for own ADL's prior to fall. Cierra Solis SHEET METAL OPERATOR, PORCELAIN ENAMEL REPAIRER
--- NOTE | 2022-12-07 15:29 | CASEMGMT ---
Social Work Pt and family reviewed list and are requesting TCU and if not available they would like [place]. VM left for TCU regarding patient. Cierra Solis VISUAL EFFECTS ARTIST, HEADING AND PRIMING TOOL SETTER
[2022-12-07 21:06] VITALS: BP 165/61; PULSE 78; RESP 24; TEMP 36.4; O2SAT 97
[2022-12-07] MEDS: traZODone 50 MG Tablet PO (21:15)
[2022-12-07] MEDS: Donepezil HCl 5 MG Tablet PO (21:15)
[2022-12-07] MEDS: Atorvastatin Calcium 10 MG Tablet 5 MG PO (22:07)
[2022-12-08 02:48] VITALS: BP 167/63; PULSE 97; RESP 22; TEMP 37.6; O2SAT 97
[2022-12-08] MEDS: Acetaminophen 325 MG Tablet 650 MG PO (02:56)
[2022-12-08] MEDS: oxyCODONE 5 MG Tablet 10 MG PO (02:57)
[2022-12-08] MEDS: 0.9% Saline Lock 10 ML Syringe IV ×2 (02:58→10:15)
[2022-12-08 06:24] LABS: Absolute Neutrophil Count 12.8 X10^3/uL (2.0-7.7); Basophil# 0.03 X10^3/uL; Basophil% 0.2 % (0-1); Eosinophil# 0.02 X10^3/uL; Eosinophils% 0.1 % (0-5); Hematocrit 35.7 % (37-47); Hemoglobin 12.1 g/dL (12.0-15.0); Lymphocyte % 13.8 % (19-41); Mean Corp Hgb Conc 33.9 g/dL (32-36); Mean Corpuscular Hgb 31.9 pg (27.0-32.0); Mean Corpuscular Volume 94.2 fL (81-99); Mean Platelet Vol. 10.6 fl (6.2-12.0); Monocyte# 1.48 X10^3/uL; Monocyte% 8.9 % (0-10); NRBC Flagged by Analyzer 0 % (0-5); Neutrophil # 12.82 X10^3/uL (2.7-7.7); Neutrophil % 76.6 % (47-70); Platelet Count 260 K/mm3 (150-450); RBC Distribution Width CV 13.9 % (11.6-14.6); RBC Distribution Width SD 47.7 fl (35.1-43.9); Red Blood Count 3.79 M/mm3 (4.2-5.4); White Blood Count 16.7 K/mm3 (4.4-11.0)
[2022-12-08 06:32] LABS: Magnesium 1.6 mg/dL (1.6-2.6)
[2022-12-08 07:05] LABS: Anion Gap 8 (5-15); BUN 20 mg/dL (7-18); BUN/Creat Ratio 25.3 RATIO (10-20); Chloride 105 mmol/L (98-107); Creatinine, Serum 0.79 mg/dL (0.55-1.02); EST Glomerular Filtration Rate 74 mL/min (>60); Est Glom Filt Rate - Afr Amer 90 mL/min (>60); Glucose 165 mg/dL (74-106); Potassium 3.2 mmol/L (3.5-5.1); Sodium Level 139 mmol/L (136-145)
[2022-12-08] MEDS: Potassium Chloride Oral Tablet 20 MEQ 40 MEQ PO (08:23)
[2022-12-08] MEDS: Vitamin E 400 UNITS Capsule PO ×2 (08:23→17:03)
[2022-12-08] MEDS: hydroCHLOROthiazide 25 MG Tablet PO (08:38)
[2022-12-08] MEDS: Lisinopril 40 MG Tablet PO (08:38)
[2022-12-08] MEDS: amLODIPine 5 MG Tablet PO (08:38)
[2022-12-08] MEDS: Pantoprazole Sodium 20 MG Tablet PO (08:38)
[2022-12-08] MEDS: Atenolol 100 MG Tablet PO (08:39)
[2022-12-08] MEDS: Cholecalciferol (VIT D3) 25 MCG TABLET (1,000 UNITS) 50 MCG PO (08:40)
[2022-12-08 08:50] VITALS: BP 172/46; PULSE 84; RESP 18; TEMP 36.4; O2SAT 96
[2022-12-08] MEDS: Ceftriaxone 1 GM/50 ML BAG IV (10:15)
--- NOTE | 2022-12-08 10:22 | PN_ITS ---
Subjective Subjective Patient seen and examined. She had no active complaints. She had an uneventful night. Review of systems is otherwise negative. She has remained hemodynamically stable. Objective Data Objective Data Vital Signs: Vital Signs Temp Pulse Resp BP Pulse Ox O2 Del Method 97.5 F L 84 18 172/46 H 96 Room Air 12/08/22 08:50 12/08/22 08:50 12/08/22 08:50 12/08/22 08:50 12/08/22 08:50 12/08/22 08:50 Oxygen Delivery Method Room Air Weight: 134 lb 3.2 oz Body Mass Index (BMI) 23.0 Intake & Output: Intake and Output for Last 24 Hours 12/06/22 12/07/22 12/08/22 23:59 23:59 23:59 Intake Total 1450 / 1450 2533.33 / 2733.33 400 / 400 Output Total 850 / 1250 600 / 600 Balance 1450 / 1450 1683.33 / 1483.33 -200 / -200 Lab / Micro Data Result Diagrams: 12/08/22 05:58 12/08/22 05:58 Labs: Laboratory Results - last 24 hr 12/08/22 05:58: WBC 16.7 H, RBC 3.79 L, Hgb 12.1, Hct 35.7 L, MCV 94.2, MCH 31.9, MCHC 33.9, RDW Std Deviation 47.7 H, RDW Coeff of Lisa 13.9, Plt Count 260, MPV 10.6, Immature Gran % (Auto) 0.400, Neut % (Auto) 76.6 H, Lymph % (Auto) 13.8 L, [place] % (Auto) 8.9, Eos % (Auto) 0.1, Baso % (Auto) 0.2, Absolute Neuts (auto) 12.8 H, Absolute Lymphs (auto) 2.30, Nucleated RBC % 0 12/08/22 05:58: Sodium 139, Potassium 3.2 L, Chloride 105, Carbon Dioxide 26.0, Anion Gap 8, BUN 20 H, Creatinine 0.79, Estim Creat Clear Calc 38.10, Est GFR (MDRD) Af Amer 90, Est GFR (MDRD) Non-Af 74, BUN/Creatinine Ratio 25.3 H, Glucose 165 H, Calcium 9.0 12/08/22 05:58: Magnesium 1.6 Micro: Microbiology 12/06/22 14:40 Urine, Clean Catch Urine Culture - Final Mixed Gram Positive Organisms Physical Exam Const alert, oriented x3 and no apparent distress General Appearance: cooperative HEENT normocephalic and head/scalp atraumatic Eyes PERRL, EOMs intact bilaterally and conjunctivae normal Neck no lymphadenopathy, supple and no JVD Resp normal respiratory effort, normal air movement, no retractions, no use of accessory muscles and clear to auscultation bilaterally Cardio regular rate, regular rhythm, S1 normal heart sound, S2 normal heart sound and no murmurs GI normal to inspection, nondistended, normoactive bowel sounds, soft to palpation, non-tender and non-distended Extremity normal to inspection, full ROM, normal capillary refill and no clubbing, cya nosis or edema Skin General Skin Exam: no breakdown Neuro oriented x3, CN's II-XII intact bilaterally and moves all extremities Sensorium / Orientation: awake and alert Motor Exam: strength 5/5 throughout Psych thought process normal, cooperative and affect normal Appearance: appropriate Assessment & Plan Assessment/Plan (1) Head injury: (2) Laceration of scalp: (3) Fall: PLAN: Plan #Debility due to mechanical fall * says her knees gave way and she fell whilst getting up from the breakfast table * she denied any dizziness, lightheadedness or passing out * sustained a scalp laceration which has been sutured * PT/OT on board. * fall precautions * #UTI * urinalysis showed 3+ bacteria * on IV ceftriaxone * urine culture growing mixed gram positive organisms * dc ceftriaxone * #RIght scalp laceration * due to mechanical fall * laceration sutured * PO tylenol and PO oxycodone prn for pain * #Mild hypercalcemia: due to dehydration.resolved. DVT prophylaxis: SCDs CODE STATUS: Full code * Patient counseled extensively about different types of CODE STATUS including full code, DNR CCA and DNR CCA. Patient elects to be full code. * Disposition: wants to go to short term rehab. Case management on board to help facilitate discharge planning Total time spent on evaluation and management of patient, reviewing chart and specialist notes, discussing plan with patient and his , discussion with nursing and ancillary staff as well as documentation: 41 mins Charges/Coding Visit Charges Inpatient E&M: 40239 Subs Hosp L2
[2022-12-08 14:50] VITALS: BP 143/45; PULSE 71; RESP 16; TEMP 36.6; O2SAT 98
[2022-12-08] MEDS: Donepezil HCl 5 MG Tablet PO (19:55)
[2022-12-08] MEDS: Atorvastatin Calcium 10 MG Tablet 5 MG PO (19:55)
[2022-12-08] MEDS: traZODone 50 MG Tablet PO (19:55)
[2022-12-08 20:13] VITALS: BP 157/50; PULSE 74; RESP 16; TEMP 37.2; O2SAT 98
[2022-12-09 03:27] VITALS: BP 158/58; PULSE 78; RESP 20; TEMP 36.9; O2SAT 92
[2022-12-09 05:08] LABS: Absolute Neutrophil Count 8.1 X10^3/uL (2.0-7.7); Basophil# 0.03 X10^3/uL; Basophil% 0.3 % (0-1); Eosinophil# 0.07 X10^3/uL; Eosinophils% 0.6 % (0-5); Hematocrit 37.2 % (37-47); Hemoglobin 12.4 g/dL (12.0-15.0); Lymphocyte % 16.3 % (19-41); Mean Corp Hgb Conc 33.3 g/dL (32-36); Mean Corpuscular Hgb 31.7 pg (27.0-32.0); Mean Corpuscular Volume 95.1 fL (81-99); Mean Platelet Vol. 10.6 fl (6.2-12.0); Monocyte# 0.94 X10^3/uL; Monocyte% 8.5 % (0-10); NRBC Flagged by Analyzer 0 % (0-5); Neutrophil # 8.13 X10^3/uL (2.7-7.7); Neutrophil % 73.8 % (47-70); Platelet Count 249 K/mm3 (150-450); RBC Distribution Width CV 13.8 % (11.6-14.6); Red Blood Count 3.91 M/mm3 (4.2-5.4)
[2022-12-09 05:34] LABS: Anion Gap 4 (5-15); BUN 13 mg/dL (7-18); BUN/Creat Ratio 20.6 RATIO (10-20); Calcium,Total 9.4 mg/dL (8.5-10.1); Chloride 103 mmol/L (98-107); Creatinine, Serum 0.63 mg/dL (0.55-1.02); EST Glomerular Filtration Rate 96 mL/min (>60); Est Glom Filt Rate - Afr Amer 116 mL/min (>60); Glucose 134 mg/dL (74-106); Potassium 3.5 mmol/L (3.5-5.1); Sodium Level 135 mmol/L (136-145)
[2022-12-09] MEDS: Acetaminophen 325 MG Tablet 650 MG PO (05:43)
[2022-12-09] MEDS: Pantoprazole Sodium 20 MG Tablet PO (09:24)
[2022-12-09] MEDS: Ceftriaxone 1 GM/50 ML BAG IV (09:24)
[2022-12-09] MEDS: Atenolol 100 MG Tablet PO (09:24)
[2022-12-09] MEDS: Vitamin E 400 UNITS Capsule PO ×2 (09:24→16:17)
[2022-12-09] MEDS: hydroCHLOROthiazide 25 MG Tablet PO (09:24)
[2022-12-09] MEDS: Lisinopril 40 MG Tablet PO (09:24)
[2022-12-09] MEDS: Cholecalciferol (VIT D3) 25 MCG TABLET (1,000 UNITS) 50 MCG PO (09:24)
[2022-12-09] MEDS: amLODIPine 5 MG Tablet PO (09:24)
[2022-12-09 09:30] VITALS: BP 171/55; PULSE 81; RESP 18; TEMP 36.6; O2SAT 96
--- NOTE | 2022-12-09 13:17 | CASEMGMT ---
Addendum entered by Grace Gar 12/09/22 13:22: SW notified pt of acceptance and precert. Pt requesting SW call pt to inform. SW called, got VM. Left message informing of acceptance. Original Note: Social Work SW [facility] stated will accept pt but will need an OT progress note to being precert. SW notified OT and they planned to work with pt as soon as possible. SW noticed OT note in. Updated Anya at [facility]. Anya messaged and informed will start precert. PLAN: [facility], pending precert CONNIE Plummer
--- NOTE | 2022-12-09 14:30 | PN.HOSP_ITS ---
Reason for Visit Reason for Visit: Diagnoses Laceration without foreign body of scalp, initial encounter (12/07/22) Unspecified injury of head, initial encounter (12/07/22) Unspecified fall, initial encounter (12/07/22) Subjective Subjective Is feeling significantly better than she had been, eating well, feeling stronger Objective Data Objective Data Vital Signs: Vital Signs Temp Pulse Resp BP Pulse Ox O2 Del Method 97.9 F 81 18 171/55 H 96 Room Air 12/09/22 09:30 12/09/22 09:30 12/09/22 09:30 12/09/22 09:30 12/09/22 09:30 12/09/22 09:30 Oxygen Delivery Method Room Air Weight: 60.872 kg Body Mass Index (BMI) 23.0 Intake & Output: Intake and Output for Last 24 Hours 12/07/22 12/08/22 12/09/22 23:59 23:59 23:59 Intake Total 2533.33 / 2733.33 1010 / 1210 250 / 250 Output Total 850 / 1250 600 / 750 400 / 400 Balance 1683.33 / 1483.33 410 / 460 -150 / -150 Lab / Micro Data Result Diagrams: 12/09/22 04:40 12/09/22 04:40 Labs: Laboratory Results - last 24 hr 12/09/22 04:40: Sodium 135 L, Potassium 3.5, Chloride 103, Carbon Dioxide 28.0, Anion Gap 4 L, BUN 13, Creatinine 0.63, Estim Creat Clear Calc 38.10, Est GFR (MDRD) Af Amer 116, Est GFR (MDRD) Non-Af 96, BUN/Creatinine Ratio 20.6 H, Glucose 134 H, Calcium 9.4 12/09/22 04:40: WBC 11.0, RBC 3.91 L, Hgb 12.4, Hct 37.2, MCV 95.1, MCH 31.7, MC HC 33.3, RDW Std Deviation 48.0 H, RDW Coeff of Lisa 13.8, Plt Count 249, MPV 10.6, Immature Gran % (Auto) 0.500, Neut % (Auto) 73.8 H, Lymph % (Auto) 16.3 L, [place] % (Auto) 8.5, Eos % (Auto) 0.6, Baso % (Auto) 0.3, Absolute Neuts (auto) 8.1 H, Absolute Lymphs (auto) 1.80, Nucleated RBC % 0 Micro: Microbiology 12/06/22 14:40 Urine, Clean Catch Urine Culture - Final Mixed Gram Positive Organisms Physical Exam Narrative General: Alert, no apparent distress HEENT: Atraumatic, normocephalic Eyes: Anicteric, normal conjunctiva, extraocular movements grossly intact Neck: Supple Respiratory: Clear to auscultation bilaterally, normal respiratory effort Cardiovascular: Regular rate and rhythm GI: Soft, nontender, nondistended Extremities: No edema Musculoskeletal: Moving all extremities Neuro: No overt focal neurological deficits Skin: No rashes appreciated Psych: Cooperative Assessment & Plan Assessment/Plan (1) Head injury: (2) Laceration of scalp: (3) Fall: PLAN: Plan #Debility due to mechanical fall * says her knees gave way and she fell whilst getting up from the breakfast table * she denied any dizziness, lightheadedness or passing out * sustained a scalp laceration which has been sutured * PT/OT on board. * fall precautions -12/09: Doing well, awaiting placement #UTI * urinalysis showed 3+ bacteria * on IV ceftriaxone * urine culture growing mixed gram positive organisms * dc ceftriaxone #RIght scalp laceration * due to mechanical fall * laceration sutured * PO tylenol and PO oxycodone prn for pain -12/09: Need suture removal between 12/13 and 12/16 #Mild hypercalcemia: due to dehydration.resolved. DVT prophylaxis: SCDs Charges/Coding Visit Charges Inpatient E&M: 79493 Subs Hosp L2
[2022-12-09 15:15] VITALS: BP 140/50; PULSE 73; RESP 18; TEMP 36.4; O2SAT 96
--- NOTE | 2022-12-09 16:45 | CASEMGMT ---
Social Work Note roadway designer contacted SW for clarification regarding discharge plan for patient. ABIDA contacted TCU admissions staff to inquire about acceptance and precert. Anya reports patient was accepted but precert can take 24-48 hrs at least. roadway designer updated. Plan: TCU accepted, pending precert Kiana LAUREANO, KATERIN
--- NOTE | 2022-12-09 16:46 | NURSING ---
verified with ABIDA Bruno whom talked with Rossy. aware TCU has accepted patient but still waiting on precert. clarification passed on to Dr. Babb.
[2022-12-09 20:35] VITALS: BP 160/75; PULSE 75; RESP 16; TEMP 36.9; O2SAT 97
[2022-12-09] MEDS: Donepezil HCl 5 MG Tablet PO (20:40)
[2022-12-09] MEDS: Atorvastatin Calcium 10 MG Tablet 5 MG PO (20:40)
[2022-12-09] MEDS: traZODone 50 MG Tablet PO (20:40)
[2022-12-09 21:18] VITALS: BP 154/42; PULSE 69
[2022-12-10 02:35] VITALS: BP 156/44; PULSE 68; RESP 16; TEMP 37.1; O2SAT 94
[2022-12-10] MEDS: hydroCHLOROthiazide 25 MG Tablet PO (09:04)
[2022-12-10] MEDS: Cholecalciferol (VIT D3) 25 MCG TABLET (1,000 UNITS) 50 MCG PO (09:04)
[2022-12-10] MEDS: Lisinopril 40 MG Tablet PO (09:04)
[2022-12-10] MEDS: Vitamin E 400 UNITS Capsule PO ×2 (09:04→16:33)
[2022-12-10] MEDS: Pantoprazole Sodium 20 MG Tablet PO (09:04)
[2022-12-10] MEDS: amLODIPine 10 MG Tablet PO (09:06)
[2022-12-10] MEDS: Atenolol 100 MG Tablet PO (09:08)
[2022-12-10 09:48] VITALS: BP 174/51; PULSE 78; RESP 18; TEMP 36.6; O2SAT 97
[2022-12-10] MEDS: Carvedilol 25 MG Tablet PO (10:33)
--- NOTE | 2022-12-10 14:14 | CASEMGMT ---
Addendum entered by Grace Gar 12/10/22 15:57: SW in to pt room to notify of insurance approval. Pt voiced understanding and ready to be transferred. Addendum entered by Grace Gar 12/10/22 15:46: MD Babb reported to ABIDA that peer to peer had been completed and pt was approved. ABIDA messaged Anya at [facility] and gave update. Anya informed earlier in the day would be out of the office until 5 pm today. Pt likely able to admit to TCU following Anya's return and ability to confirm pt has been approved. . ABIDA notified pt nurse of need for covid swab and completed green sheet on dispo directions and added this to pt chart. Original Note: Social work Anya from [facility] reached out to inform [employer] is requesting a peer to peer call with pt's . ABIDA updated MD Babb and then called [employer]'s peer to peer scheduling line. ABIDA waited 20 minutes on hold, then chose the option to leave a message with the information needed. ABIDA will await return phone call from [employer]. ABIDA updated MD Babb that Kay may call her to being the peer to peer phone call this day or tomorrow morning. CONNIE Plummer
[2022-12-10 15:00] VITALS: BP 133/48; PULSE 67; RESP 18; TEMP 36.4; O2SAT 96
--- NOTE | 2022-12-10 15:13 | PCM.PN.HOSP ---
Reason for Visit Reason for Visit: Diagnoses Laceration without foreign body of scalp, initial encounter (12/07/22) Unspecified injury of head, initial encounter (12/07/22) Unspecified fall, initial encounter (12/07/22) Objective Data Objective Data Vital Signs: Vital Signs Temp Pulse Resp BP Pulse Ox O2 Del Method 97.6 F L 67 18 133/48 H 96 Room Air 12/10/22 15:00 12/10/22 15:00 12/10/22 15:00 12/10/22 15:00 12/10/22 15:00 12/10/22 15:00 Oxygen Delivery Method Room Air Weight: 60.872 kg Body Mass Index (BMI) 23.0 Intake & Output: Intake and Output for Last 24 Hours 12/08/22 12/09/22 12/10/22 23:59 23:59 23:59 Intake Total 1010 / 1210 490 / 690 200 / 200 Output Total 600 / 750 400 / 825 425 / 425 Balance 410 / 460 90 / -135 -225 / -225 Lab / Micro Data Result Diagrams: 12/09/22 04:40 12/09/22 04:40 Micro: Microbiology 12/06/22 14:40 Urine, Clean Catch Urine Culture - Final Mixed Gram Positive Organisms
--- NOTE | 2022-12-10 16:06 | TREXTCAR_ITS ---
Diet Diet Order/Speech Therapy: 12/06/22 16:00 Diet: Cardiac - Heart Healthy Food consistency:: Regular Liquid Consistency:: Regular/Thin Is pt able to select menu?: No Routine Orders/Code Status Suppository Type: Dulcolax 10mg Suppository Frequency: Daily PRN Code Status: Full Code Wound(s) head: Wound Type: Laceration toñito knees: Wound Type: Abrasion Therapies Physical Therapy: Eval and Treat Occupational Therapy: Eval and Treat Problem/Diagnosis (1) Head injury: Status: Acute Code(s): S09.90XA - Unspecified injury of head, initial encounter (2) Laceration of scalp: Status: Acute Code(s): S01.01XA - Laceration without foreign body of scalp, initial encounter (3) Fall: Status: Acute Code(s): W19.XXXA - Unspecified fall, initial encounter Plan 82-year-old female with a history of hypertension and dementia who presented to [facility] 12/06/2022 with mechanical fall. She lives at home with her and tried to get up from the breakfast table and lost her balance and fell down. She landed on her knees and then hit her head on the floor. In the ED she is found to have a head laceration that required kirk. Head CT and knee x-rays otherwise unremarkable. Admitted for PT/OT and placement. There was question of a UTI however ultimately this was ruled out and ceftriaxone was discontinued. She continued to work with physical therapy and was stable for transfer to TCU. Discharge instructions as followed -Atenolol was discontinued and replaced with carvedilol to help further with blood pressure -Keep the laceration on your right forehead clean. Clean daily with soap and water. -Tylenol for pain. -Stapled laceration of right forehead, kirk remove between 12/13 and 12/16 -We stapled the laceration of your right forehead. The kirk should come out no sooner than 7 days and no later than 10 days. -Please call your primary care provider's office upon discharge to schedule a hospital follow up within 1 week. -For any concerning signs or symptoms please call 911 or proceed to the nearest emergency department ##Debility due to mechanical fall #HTN #R scalp laceration Allergies/Procedures Done in Hospital Allergies Sulfa (Sulfonamide Antibiotics) Allergy (Verified 12/06/22 09:55) Rash Influenza Virus Vaccines Adverse Reaction (Verified 12/06/22 09:55) Other Type of Care/Length of Stay Estimated LOS: More Than 30 Days Type of Care Needed: Skilled Rehab Potential: Good Prognosis: Good Additional Orders/Day of Discharge Day of Discharge: 12/10/22 Discharge Plan Admission Admit Date/Time: 12/07/22 13:44 Primary Reason for Your Visit: Fall Attending Provider: Laura Babb Primary Care Provider: Argentina Madison Consulting Providers: Erica Rao Instructions Patient Instructions: ED Contusion, Lower Extremity, ED Head Injury (Adult), ED Laceration: All Closures Additional Instructions / Restrictions: DISCHARGE INSTRUCTIONS PLEASE READ -Atenolol was discontinued and replaced with carvedilol to help further with blood pressure -Keep the laceration on your right forehead clean. Clean daily with soap and water. -Tylenol for pain. -Stapled laceration of right forehead, kirk remove between 12/13 and 12/16 -We stapled the laceration of your right forehead. The kirk should come out no sooner than 7 days and no later than 10 days. -Please call your primary care provider's office upon discharge to schedule a hospital follow up within 1 week. -For any concerning signs or symptoms please call 911 or proceed to the nearest emergency department Discharge Orders/Prescriptions Prescriptions: New carvedilol 25 mg Tablet 25 mg PO BID 30 Days Qty: 0 0RF Continued donepezil 5 mg tablet 5 mg PO QHS trazodone 50 mg tablet 50 mg PO QHS simvastatin 10 mg tablet 10 mg PO QHS amlodipine 5 mg tablet 5 mg PO DAILY Label Comments: TAKE 1 TABLET BY MOUTH ONCE DAILY vitamin E 400 unit Tablet 400 unit PO BID omeprazole 20 mg capsule,delayed release(DR/EC) 20 mg PO DAILY hydrochlorothiazide 25 mg tablet 25 mg PO DAILY lisinopril 40 mg tablet 40 mg PO DAILY cholecalciferol (vitamin D3) [Vitamin D3] 25 mcg (1,000 unit) Capsule 50 mcg PO DAILY Discontinued atenolol 100 mg tablet 100 mg PO DAILY Label Comments: TAKE 1 TABLET BY MOUTH ONCE DAILY Referrals / Follow Up: Argentina Madison PA [Primary Care Provider] - 10 Day for suture removal Disposition Disposition (needs filled in before D/C Order can be placed): [facility] Facility
--- NOTE | 2022-12-10 16:17 | DS.PCM_ITS ---
Providers Date of Admission: 12/07/22 Date of Discharge: 12/10/22 Primary Care Physician: MADISON Gonzalez Reason For Visit: DEBILITY DUE TO MECHANICAL FALL Diagnosis Discharge Diagnosis (1) Head injury: Status: Acute Code(s): S09.90XA - Unspecified injury of head, initial encounter (2) Laceration of scalp: Status: Acute Code(s): S01.01XA - Laceration without foreign body of scalp, initial encounter (3) Fall: Status: Acute Code(s): W19.XXXA - Unspecified fall, initial encounter Plan #Debility due to mechanical fall #HTN #R scalp laceration Medications at Discharge Home Medications amlodipine 5 mg tablet 5 mg PO DAILY BP 12/06/22 cholecalciferol (vitamin D3) 25 mcg (1,000 unit) capsule (Vitamin D3) 50 mcg PO DAILY Supplement 12/06/22 donepezil 5 mg tablet 5 mg PO QHS Alzheimer's 12/06/22 hydrochlorothiazide 25 mg tablet 25 mg PO DAILY Heart 12/06/22 lisinopril 40 mg tablet 40 mg PO DAILY bp 12/06/22 omeprazole 20 mg capsule,delayed release 20 mg PO DAILY GERD 12/06/22 simvastatin 10 mg tablet 10 mg PO QHS Cholesterol 12/06/22 trazodone 50 mg tablet 50 mg PO QHS Sleep 12/06/22 vitamin E 400 unit tablet 400 unit PO BID supplement 12/06/22 carvedilol 25 mg tablet 25 mg PO BID Bp 12/10/22 Hospital Course Summary of Care Provided Minutes Spent on Discharge: 35 Hospital Course: 82-year-old female with a history of hypertension and dementia who presented to [facility] 12/06/2022 with mechanical fall. She lives at home with her and tried to get up from the breakfast table and lost her balance and fell down. She landed on her knees and then hit her head on the floor. In the ED she is found to have a head laceration that required kirk. Head CT and knee x-rays otherwise unremarkable. Admitted for PT/OT and placement. There was question of a UTI however ultimately this was ruled out and ceftriaxone was discontinued. She continued to work with physical therapy and was stable for transfer to TCU. Discharge instructions as followed -Atenolol was discontinued and replaced with carvedilol to help further with blood pressure -Keep the laceration on your right forehead clean. Clean daily with soap and water. -Tylenol for pain. -Stapled laceration of right forehead, kirk remove between 12/13 and 12/16 -We stapled the laceration of your right forehead. The kirk should come out no sooner than 7 days and no later than 10 days. -Please call your primary care provider's office upon discharge to schedule a hospital follow up within 1 week. -For any concerning signs or symptoms please call 911 or proceed to the nearest emergency department Physical Exam Narrative General: Alert, no apparent distress HEENT: Atraumatic, normocephalic Eyes: Anicteric, normal conjunctiva, extraocular movements grossly intact Neck: Supple Respiratory: Clear to auscultation bilaterally, normal respiratory effort Cardiovascular: Regular rate and rhythm GI: Soft, nontender, nondistended Extremities: No edema Musculoskeletal: Moving all extremities Neuro: No overt focal neurological deficits Skin: No rashes appreciated Psych: Cooperative Weight / BMI Weight Weight: 60.872 kg Body Mass Index (BMI) 23.0 ABG / Lab / Microbiology Data Result Diagrams: 12/09/22 04:40 12/09/22 04:40 Microbiology: Microbiology 12/06/22 14:40 Urine, Clean Catch Urine Culture - Final Mixed Gram Positive Organisms Meaningful Use Info Meaningful Use Diagnoses (Choose all that apply): None applicable Discharge Plan Admission Admit Date/Time: 12/07/22 13:44 Primary Reason for Your Visit: Fall Attending Provider: Laura Babb Primary Care Provider: Argentina Madison Consulting Providers: Erica Rao Instructions Patient Instructions: ED Contusion, Lower Extremity, ED Head Injury (Adult), ED Laceration: All Closures Additional Instructions / Restrictions: DISCHARGE INSTRUCTIONS PLEASE READ -Atenolol was discontinued and replaced with carvedilol to help further with blood pressure -Keep the laceration on your right forehead clean. Clean daily with soap and water. -Tylenol for pain. -Stapled laceration of right forehead, kirk remove between 12/13 and 12/16 -We stapled the laceration of your right forehead. The kirk should come out no sooner than 7 days and no later than 10 days. -Please call your primary care provider's office upon discharge to schedule a hospital follow up within 1 week. -For any concerning signs or symptoms please call 911 or proceed to the nearest emergency department Discharge Orders/Prescriptions Prescriptions: Continued donepezil 5 mg tablet 5 mg PO QHS trazodone 50 mg tablet 50 mg PO QHS simvastatin 10 mg tablet 10 mg PO QHS amlodipine 5 mg tablet 5 mg PO DAILY Label Comments: TAKE 1 TABLET BY MOUTH ONCE DAILY vitamin E 400 unit Tablet 400 unit PO BID omeprazole 20 mg capsule,delayed release(DR/EC) 20 mg PO DAILY hydrochlorothiazide 25 mg tablet 25 mg PO DAILY lisinopril 40 mg tablet 40 mg PO DAILY cholecalciferol (vitamin D3) [Vitamin D3] 25 mcg (1,000 unit) Capsule 50 mcg PO DAILY Discontinued atenolol 100 mg tablet 100 mg PO DAILY Label Comments: TAKE 1 TABLET BY MOUTH ONCE DAILY No Action carvedilol 25 mg tablet 25 mg PO BID Referrals / Follow Up: Argentina Madison PA [Primary Care Provider] - 10 Day for suture removal Disposition Disposition (needs filled in before D/C Order can be placed): Nursing Home Facility Charges/Coding Visit Charges Inpatient E&M: 30779 Disch Hosp >30min
--- NOTE | 2022-12-10 16:27 | NURSING ---
Report called to Reynaldo at TCU pt will go to room 13 after she eats her dinner.
== END 2022-12-10 18:00 | disposition skilled nursing facility (03) | DRG 948 ==
LOC: ED 14:42 → MS3 15:28
PROVIDERS: Family Medicine; Admitting Provider Student in an Organized Health Care Education/Training Program; Emergency Provider Emergency Medicine; PCP Physician Assistant; Visit Provider Internal Medicine
DX: R53.81 Other malaise (principal); F03.90 Unspecified dementia, unspecified severity, without behavioral disturbance, psychotic disturbance, mood disturbance, and anxiety; R62.7 Adult failure to thrive; I10 Essential (primary) hypertension; E83.52 Hypercalcemia; S01.01XA Laceration without foreign body of scalp, initial encounter; E86.0 Dehydration; Z79.899 Other long term (current) drug therapy; Z87.891 Personal history of nicotine dependence; W07.XXXA Fall from chair, initial encounter; S80.01XA Contusion of right knee, initial encounter; S80.02XA Contusion of left knee, initial encounter; N39.0 Urinary tract infection, site not specified; Y92.000 Kitchen of unspecified non-institutional (private) residence as the place of occurrence of the external cause
CPT/HCPCS: 12001; 36415; 70450; 71045; 73562; 80048; 81001; 83735; 85025; 87086; 87088; 87811; 90715; 96361; 96365; 96366; 97110; 97116; 97161; 97166; 97530; 97535; 99221; 99252; 99285; J7030; P9612; A4216; G0378; G0463

== ENCOUNTER 2022-12-10 18:05 | Inpatient (IN) | payer MEDICARE, SELFPAY ==
--- NOTE | 2022-12-10 20:23 | HP.PCM_ITS ---
HPI - General General Date of Admission: 12/10/22 Date of Service: 12/11/22 Chief Complaint: Here for rehabilitation. HPI Narrative 12/06/2022 GENEVA ORDOÑEZ, is a 82 Female who presents to [facility] Emergency Department with fall. Fall getting up from chair in kitchen. Lost balance, positive head injury, negative loss of consciousness. Scalp laceration repaired. Too weak to stand. WBC 18.4. Urinalysis consistent with urinary tract infection, urine culture sent. IV fluids given. Chest X-ray negative. X-ray bilateral knees negative. CT brain negative. 12/06/2022 Admit to Hospital. PT/OT for debility. Tylenol, Oxycodone for pain. IV fluids for hypercalcemia, dehydration. 12/07/2022 Ceftriaxone IV for urinary tract infection, urine culture pending. Calcium improved to 8.6. 12/08/2022 No complaints. Urine culture growing gram positive organisms, stop Ceftriaxone. Hypercalcemia resolved. 12/09/2022 Feeling better, eating well, feeling stronger. PT/OT for TCU. Scalp suture removal 12/13 to 12/16/2022. 12/10/2022 Admit to TCU with debility, here for rehabilitation, strengthening, prior to discharge home with . [facility] Medical History Dementia Fall Former smoker HTN (hypertension) Vision loss of left eye Vision loss of right eye Home Medications amlodipine 5 mg tablet 5 mg PO DAILY BP 12/06/22 [History Last Taken Unknown] cholecalciferol (vitamin D3) 25 mcg (1,000 unit) capsule (Vitamin D3) 50 mcg PO DAILY Supplement 12/06/22 [History Last Taken Unknown] donepezil 5 mg tablet 5 mg PO QHS Alzheimer's 12/06/22 [History Last Taken Unknown] hydrochlorothiazide 25 mg tablet 25 mg PO DAILY Heart 12/06/22 [History Last Taken Unknown] lisinopril 40 mg tablet 40 mg PO DAILY bp 12/06/22 [History Last Taken Unknown] omeprazole 20 mg capsule,delayed release 20 mg PO DAILY GERD 12/06/22 [History Last Taken Unknown] simvastatin 10 mg tablet 10 mg PO QHS Cholesterol 12/06/22 [History Last Taken Unknown] trazodone 50 mg tablet 50 mg PO QHS Sleep 12/06/22 [History Last Taken Unknown] vitamin E 400 unit tablet 400 unit PO BID supplement 12/06/22 [History Last Taken Unknown] carvedilol 25 mg tablet 25 mg PO BID Bp 12/10/22 [History Last Taken Unknown] Allergy/AdvReac Type Severity Reaction Status Date / Time Sulfa (Sulfonamide Allergy Rash Verified 12/06/22 09:55 Antibiotics) Influenza Virus Vaccines AdvReac Other Verified 12/06/22 09:55 Surgical History History of appendectomy Social History (Updated 12/10/22 @ 20:[address] Ruslan Ramesh MD) household members: spouse Smoking Status: Former smoker substance use type: does not use seatbelt use: always ROS Constitutional Constitutional: Denies chills, fever(s) or weight gain ENT HEENT: Denies headache(s), nasal congestion or nasal discharge Cardiovascular Cardiovascular: Denies chest pain or palpitations Respiratory/Chest Respiratory/Chest: Denies cough, excessive phlegm production or shortness of breath with exertion Gastrointestinal Gastrointestinal: Denies abdominal pain, nausea or vomiting Genitourinary Genitourinary: Denies dysuria Musculoskeletal Musculoskeletal: Denies joint pain or joint swelling Integumentary Integumentary: Denies rash or wounds Neurologic Neurologic: Denies focal weakness, numbness or tingling Psychiatric Psychiatric: Denies anxiety, auditory hallucinations, depression, homicidal ideation or suicidal ideation Physical Exam Const alert General Appearance: cooperative HEENT normocephalic Eyes PERRL and EOMs intact bilaterally Neck supple, no JVD and no carotid bruits Resp normal respiratory effort, normal air movement and clear to auscultation bilaterally Cardio regular rate and regular rhythm GI normal to inspection, nondistended, normoactive bowel sounds, non-tender and non-distended Extremity normal capillary refill General Extremity: Negative for edema Skin no rashes or lesions noted Skin Narrative: Scalp laceration clean, dry, intact. General Skin Exam: no breakdown Psych affect normal Appearance: appropriate Results Lab / Micro Data Result Diagrams: 12/11/22 05:20 12/11/22 05:20 Assessment & Plan Assessment/Plan (1) Debility: (2) Fall: (3) Scalp laceration: (4) Hypercalcemia: (5) Dehydration: (6) Hypertension: (7) Dementia: PLAN: Plan 82 year old female with below past medical history hospitalized for fall, scalp laceration, ruled out urinary tract infection, complicated by hypercalcemia, dehydration, admitted to TCU with debility, here for rehabilitation, strengthening, prior to discharge home with . * Debility - PT/OT. * Pain - Tylenol 1000mg q6h prn pain (1-10). * Bowel - senna/colace 1 tablet bid, MOM 30ml po x 1 prn. * Adult immunization - Administer pneumonia vaccine, covid19 vaccine, flu vaccine as appropriate. * DVT prophylaxis - Hold, monitor. * Scalp laceration - suture removal 12/16/2022. * Hypertension - Coreg 25mg bid, Lisinopril 40mg daily, HCTZ 25mg daily, Amlodipine 5mg daily. * Hyperlipidemia - Atorvastatin 5mg qhs. * Alzheimer Disease - Donepezil 5mg qhs. * GERD - Pantoprazole 20mg daily. * Insomnia - Trazodone 50mg qhs. * Vitamin D deficiency - D3 50mcg daily.
[2022-12-10] MEDS: traZODone 50 MG Tablet PO (20:27)
[2022-12-10] MEDS: Atorvastatin Calcium 10 MG Tablet 5 MG PO (20:27)
[2022-12-10] MEDS: Donepezil HCl 5 MG Tablet PO (20:28)
[2022-12-10 21:22] VITALS: BMI 25.0
[2022-12-10 22:00] VITALS: PULSE 73; RESP 16; O2SAT 93
[2022-12-10] MEDS: Senna/Docusate Sodium 1 Tablet PO (22:11)
[2022-12-10 22:15] VITALS: BMI 25.0
[2022-12-10 22:18] VITALS: BP 165/51; PULSE 73; RESP 16; TEMP 37.2; O2SAT 93
[2022-12-11 05:52] LABS: Absolute Lymphocyte Count 1.83 X10^3/uL (0.83-4.51); Absolute Neutrophil Count 5.3 X10^3/uL (2.0-7.7); Basophil# 0.03 X10^3/uL; Basophil% 0.4 % (0-1); Eosinophil# 0.15 X10^3/uL; Eosinophils% 1.8 % (0-5); Hematocrit 37.1 % (37-47); Hemoglobin 12.6 g/dL (12.0-15.0); Lymphocyte # 1.83 X10^3/ul (0.83-4.51); Lymphocyte % 22.2 % (19-41); Mean Corpuscular Hgb 31.9 pg (27.0-32.0); Mean Corpuscular Volume 93.9 fL (81-99); Mean Platelet Vol. 10.6 fl (6.2-12.0); Monocyte# 0.85 X10^3/uL; Monocyte% 10.3 % (0-10); NRBC Flagged by Analyzer 0 % (0-5); Neutrophil # 5.34 X10^3/uL (2.7-7.7); Neutrophil % 64.9 % (47-70); Platelet Count 260 K/mm3 (150-450); RBC Distribution Width CV 13.6 % (11.6-14.6); Red Blood Count 3.95 M/mm3 (4.2-5.4); White Blood Count 8.2 K/mm3 (4.4-11.0)
[2022-12-11] MEDS: Pantoprazole Sodium 20 MG Tablet PO (06:21)
[2022-12-11] MEDS: Carvedilol 25 MG Tablet PO ×2 (06:21→17:56)
[2022-12-11] MEDS: Cholecalciferol (VIT D3) 25 MCG TABLET (1,000 UNITS) 50 MCG PO (06:21)
[2022-12-11] MEDS: Lisinopril 40 MG Tablet PO (06:21)
[2022-12-11] MEDS: amLODIPine 5 MG Tablet PO (06:21)
[2022-12-11] MEDS: hydroCHLOROthiazide 25 MG Tablet PO (06:21)
[2022-12-11] MEDS: Senna/Docusate Sodium 1 Tablet PO ×2 (06:22→17:56)
[2022-12-11 06:32] LABS: Anion Gap 4 (5-15); BUN 18 mg/dL (7-18); BUN/Creat Ratio 26.4 RATIO (10-20); Calcium,Total 9.5 mg/dL (8.5-10.1); Chloride 99 mmol/L (98-107); Creatinine, Serum 0.68 mg/dL (0.55-1.02); EST Glomerular Filtration Rate 88 mL/min (>60); Est Glom Filt Rate - Afr Amer 106 mL/min (>60); Glucose 120 mg/dL (74-106); Potassium 3.5 mmol/L (3.5-5.1); Sodium Level 135 mmol/L (136-145)
[2022-12-11] MEDS: Tuberculin,Purif.prot.deriv. 50 TU/ML Vial 0.1 ML ID (10:00)
--- NOTE | 2022-12-11 11:29 | PCM.PN.DRR ---
TCU RX Drug Regimen Review Subjective: TCU Admission. 82 YOF presented to the ER with a fall. Hospitalized for fall, scalp laceration, ruled out urinary tract infection, complicated by hypercalcemia, dehydration. Admitted to TCU with debility for strengthening and rehabilitation. Objective: Allergies Sulfa (Sulfonamide Antibiotics) Allergy (Verified 12/06/22 09:55) Rash Influenza Virus Vaccines Adverse Reaction (Verified 12/06/22 09:55) Other Current Medications Generic Name Dose Route Start Last Admin Trade Name Freq PRN Reason Stop Dose Admin Acetaminophen 1,000 mg 12/10/22 20:35 Acetaminophen 500 Mg Tablet PO Q6H PRN PRN Pain Score 1-10 Amlodipine Besylate 5 mg 12/11/22 06:00 12/11/22 06:21 Amlodipine 5 Mg Tablet PO 5 mg DAILY EROS Administration Atorvastatin Calcium 5 mg 12/10/22 22:00 12/10/22 20:27 Atorvastatin Calcium 10 Mg Tablet PO 5 mg QHS EROS Administration Carvedilol 25 mg 12/11/22 06:00 12/11/22 06:21 Carvedilol 25 Mg Tablet PO 25 mg BID EROS Administration Cholecalciferol 50 mcg 12/11/22 06:00 12/11/22 06:21 Cholecalciferol (Vit D3) 25 Mcg Tablet (1,000 Units) PO 50 mcg DAILY EROS Administration Donepezil HCl 5 mg 12/10/22 22:00 12/10/22 20:28 Donepezil Hcl 5 Mg Tablet PO 5 mg QHS EROS Administration Hydrochlorothiazide 25 mg 12/11/22 06:00 12/11/22 06:21 Hydrochlorothiazide 25 Mg Tablet PO 25 mg DAILY EROS Administration Lisinopril 40 mg 12/11/22 06:00 12/11/22 06:21 Lisinopril 40 Mg Tablet PO 40 mg DAILY EROS Administration Magnesium Hydroxide 30 ml 12/10/22 20:35 Magnesium Hydroxide 30 Ml Udc PO X1 PRN Constipation Pantoprazole Sodium 20 mg 12/11/22 06:00 12/11/22 06:21 Pantoprazole Sodium 20 Mg Tablet PO 20 mg DAILY EROS Administration Senna/Docusate Sodium 1 tablet 12/10/22 20:45 12/11/22 06:22 Senna/Docusate Sodium 1 Tablet PO 1 tablet BID EROS Administration Sodium Chloride 10 - 40 ml 12/10/22 22:20 0.9% Saline Lock 10 Ml Syringe IV UD PRN SALINE FLUSH Trazodone HCl 50 mg 12/10/22 22:00 12/10/22 20:27 Trazodone 50 Mg Tablet PO 50 mg QHS EROS Administration Tuberculin PPD 0.1 ml 12/18/22 10:00 Tuberculin,Purif.Prot.Deriv. 50 Tu/Ml Vial ID 12/18/22 10:01 X1 ONE Problem List (Last Reviewed 12/10/22 @ 20:[address] Ruslan Ramesh MD) Dementia (Acute) Hypertension (Chronic) Dehydration (Acute) Hypercalcemia (Acute) Scalp laceration (Acute) Fall (Acute) Debility (Acute) Vital Signs Temp Pulse Resp BP Pulse Ox O2 Del Method 98.9 F 73 16 165/51 H 93 Room Air 12/10/22 22:18 12/10/22 22:18 12/10/22 22:18 12/10/22 22:18 12/10/22 22:18 12/10/22 22:18 Oxygen Delivery Method Room Air Weight: 64.047 kg Body Mass Index (BMI) 25.0 Sodium 135 mmol/L (136-145) L 12/11/22 05:20 Potassium 3.5 mmol/L (3.5-5.1) 12/11/22 05:20 Chloride 99 mmol/L (98-107) 12/11/22 05:20 Carbon Dioxide 32.0 mmol/L (21.0-32.0) 12/11/22 05:20 Anion Gap 4 (5-15) L 12/11/22 05:20 BUN 18 mg/dL (7-18) 12/11/22 05:20 Creatinine 0.68 mg/dL (0.55-1.02) 12/11/22 05:20 Est GFR (MDRD) Af Amer 106 mL/min (>60) 12/11/22 05:20 Est GFR (MDRD) Non-Af 88 mL/min (>60) 12/11/22 05:20 BUN/Creatinine Ratio 26.4 RATIO (10-20) H 12/11/22 05:20 Glucose 120 mg/dL (74-106) H 12/11/22 05:20 Assessment/Plan: 1. Pain: acetaminophen 1000mg PO Q6H PRN pain 1-10. No PRN doses given so far. Please continue to monitor for increased pain and PRN usage. 2. Bowel: senna/docusate 1T PO BID and MOM 30mL PO x1 PRN constipation. No PRN doses given. Please continue to monitor for constipation and PRN usage. Last documented bowel movement 12/10. 3. Hypertension: carvedilol 25mg PO BID, lisinopril 40mg PO daily, hydrochlorothiazide 25mg PO daily and amlodipine 5mg PO daily. Please continue to monitor HR (last 73), BP (last 165/51), potassium (last 3.5mmol/L), sodium (last 135mmol/L), renal function, cough and swelling. 4. Hyperlipidemia: atorvastatin 5mg PO QHS. Please consider ordering a lipid panel as there is no panel in the chart. Thanks. Please continue to monitor for muscle pain. 5. Alzheimer disease: donepezil 5mg PO QHS. Please continue to monitor for S/S of Alzheimer and GI side effects. 6. GERD: pantoprazole 20mg PO daily. Please continue to monitor for S/S of GERD and diarrhea (BEERs medication). 7. Vitamin D deficiency: cholecalciferol 50mcg PO daily. Please consider ordering a vitamin D level as there is no level in the chart. Thanks. Assessment/Plan for indications treated with psychotropic medications: 1. Insomnia: trazodone 50mg PO QHS. Please continue to monitor for excessive drowsiness. GDR not appropriate as this medication is being used for insomnia. Medical chart and medication regimen reviewed. The following medication irregularities or issues were identified: *1. Atorvastatin 5mg PO QHS. Please consider ordering a lipid panel as there is no panel in the chart. Thanks. *2. Cholecalciferol 50mcg PO daily. Please consider ordering a vitamin D level as there is no level in the chart. Thanks. Date of Note:: 12/11/22
--- NOTE | 2022-12-11 11:34 | CASEMGMT ---
Social Work Met with patient to complete initial assessment. Introduced self and role. Verified contacts. Discussed code status and MOLST form. Pt confirmed full code. MOLST placed in Dr folder. Pt reports to have advanced directives, but unsure who is HCPOA. Pt agreed to have bring in copies. Educated to [facility] insurance with [employer] 12/12 and continued stay is not guaranteed with each review. Pt's goal is to return home with . uses [facility]WW to ambulate. Both share IADL duties. ST order entered to ensure safety at home. SW to continue to follow for DC planning. Trinh Hicks, DOOR TO DOOR FUNDRAISING COLLECTOR CLOTH WEIGHER
--- NOTE | 2022-12-11 12:54 | NURSING ---
Pattern Drafter Note; Activity Asset: Vinicio Marroquin is independent in her choice of daily activities. She enjoys reading, word search puzzles and spending time w/family and friends. She welcomes the Reinsurance Claim Analyst and therapy visits along w/small group when not in therapy.
[2022-12-11 13:58] VITALS: BP 123/53; PULSE 72; RESP 16; TEMP 36.1; O2SAT 95
--- NOTE | 2022-12-11 14:45 | CHAPLAIN ---
Type of Pastoral Visit _x__ Initial Visit ___ Follow-up Visit ___ On-call Visit ___ General Patient Visit ___ Spiritual Assessment ___ Family Conference ___ Bereavement ___ Rapid Response ___ Code Blue ___ Other (describe below) Pastoral Care Referral From _x__ Patient ___ Family ___ Nurse ___ Physician ___ Civil Defense Director ___ Railroad Carman ___ Other (describe below) Sacrament/Intervention _x__ Active listening ___ Anointing ___ Orthodox ___ Bereavement ___ Communion _x__ Nidia exploration ___ _x__ Life review _x__ Prayer ___ Reconciliation ___ Sacrament of Sick _x__ Supportive presence ___ Wedding ___ Other (describe below) Pastoral Comments patient is very welcoming and eager to talk; pt speaks of 50 year marriage, life long membership of local buddhist, and her desire to get home after gaining strength; pt benefited from talking and giving life review; pt desired to have prayers spoken for her; pt welcomes future visits; pt several times mentioned that she was looking for her 'at any minute';
[2022-12-11] MEDS: Hydrocortisone 2.5% Crm 1 APPLIC TOPICAL (19:00)
[2022-12-11] MEDS: Donepezil HCl 5 MG Tablet PO (19:57)
[2022-12-11] MEDS: Atorvastatin Calcium 10 MG Tablet 5 MG PO (19:57)
[2022-12-11] MEDS: traZODone 50 MG Tablet PO (19:58)
[2022-12-11 21:00] VITALS: PULSE 77; RESP 16; O2SAT 94
[2022-12-12] MEDS: hydroCHLOROthiazide 25 MG Tablet PO (05:48)
[2022-12-12] MEDS: Senna/Docusate Sodium 1 Tablet PO (05:48)
[2022-12-12] MEDS: Carvedilol 25 MG Tablet PO ×2 (05:48→17:34)
[2022-12-12] MEDS: Cholecalciferol (VIT D3) 25 MCG TABLET (1,000 UNITS) 50 MCG PO (05:48)
[2022-12-12] MEDS: Lisinopril 40 MG Tablet PO (05:48)
[2022-12-12] MEDS: Pantoprazole Sodium 20 MG Tablet PO (05:48)
[2022-12-12] MEDS: amLODIPine 5 MG Tablet PO (05:48)
[2022-12-12] MEDS: FLU VACC QS2022-23(6MOS UP)/PF 60 MCG/0.5 ML SYRINGE IM (10:56)
[2022-12-12 14:01] VITALS: BP 108/60; PULSE 78; RESP 14; TEMP 36.1; O2SAT 95
[2022-12-12] MEDS: Donepezil HCl 5 MG Tablet PO (20:27)
[2022-12-12] MEDS: Atorvastatin Calcium 10 MG Tablet 5 MG PO (20:27)
[2022-12-12] MEDS: traZODone 50 MG Tablet PO (20:28)
[2022-12-13 06:20] VITALS: BP 131/50; PULSE 77
[2022-12-13] MEDS: Pantoprazole Sodium 20 MG Tablet PO (06:22)
[2022-12-13] MEDS: Senna/Docusate Sodium 1 Tablet PO ×2 (06:22→17:13)
[2022-12-13] MEDS: Lisinopril 40 MG Tablet PO (06:22)
[2022-12-13] MEDS: Cholecalciferol (VIT D3) 25 MCG TABLET (1,000 UNITS) 50 MCG PO (06:22)
[2022-12-13] MEDS: amLODIPine 5 MG Tablet PO (06:23)
[2022-12-13] MEDS: hydroCHLOROthiazide 25 MG Tablet PO (06:23)
[2022-12-13] MEDS: Carvedilol 25 MG Tablet PO ×2 (06:23→17:13)
[2022-12-13 09:14] VITALS: PULSE 76; O2SAT 93
--- NOTE | 2022-12-13 10:37 | NURSING ---
[place] x6 removed from right forehead. No bleeding noted. Laceration well approximated. Patient tolerated well.
[2022-12-13 16:00] VITALS: BP 121/36; PULSE 78; RESP 16; TEMP 36.9; O2SAT 93
[2022-12-13] MEDS: Donepezil HCl 5 MG Tablet PO (21:53)
[2022-12-13] MEDS: traZODone 50 MG Tablet PO (21:53)
[2022-12-13] MEDS: Atorvastatin Calcium 10 MG Tablet 5 MG PO (21:54)
[2022-12-14] MEDS: Lisinopril 40 MG Tablet PO (05:03)
[2022-12-14] MEDS: Senna/Docusate Sodium 1 Tablet PO ×2 (05:03→17:18)
[2022-12-14] MEDS: Cholecalciferol (VIT D3) 25 MCG TABLET (1,000 UNITS) 50 MCG PO (05:03)
[2022-12-14] MEDS: Pantoprazole Sodium 20 MG Tablet PO (05:03)
[2022-12-14] MEDS: Carvedilol 25 MG Tablet PO ×2 (05:03→17:18)
[2022-12-14 05:09] VITALS: BP 129/51; PULSE 70; RESP 16
[2022-12-14] MEDS: amLODIPine 5 MG Tablet PO (08:45)
[2022-12-14] MEDS: hydroCHLOROthiazide 25 MG Tablet PO (08:46)
[2022-12-14 08:49] VITALS: BP 134/44; PULSE 70
[2022-12-14 15:54] VITALS: BP 119/55; PULSE 77; RESP 16; TEMP 36.9; O2SAT 94
[2022-12-14 17:22] VITALS: BP 150/51; PULSE 95
[2022-12-14] MEDS: Atorvastatin Calcium 10 MG Tablet 5 MG PO (21:35)
[2022-12-14] MEDS: traZODone 50 MG Tablet PO (21:37)
[2022-12-14] MEDS: Donepezil HCl 5 MG Tablet PO (21:37)
[2022-12-14] MEDS: Hydrocortisone 2.5% Crm 1 APPLIC TOPICAL (21:44)
[2022-12-15] MEDS: Acetaminophen 500 MG Tablet 1000 MG PO ×2 (00:10→21:43)
[2022-12-15] MEDS: Cholecalciferol (VIT D3) 25 MCG TABLET (1,000 UNITS) 50 MCG PO (06:48)
[2022-12-15] MEDS: Pantoprazole Sodium 20 MG Tablet PO (06:49)
[2022-12-15] MEDS: Lisinopril 40 MG Tablet PO (06:49)
[2022-12-15] MEDS: Carvedilol 25 MG Tablet PO ×2 (06:49→17:04)
[2022-12-15 06:51] VITALS: BP 145/47; PULSE 79
[2022-12-15] MEDS: amLODIPine 5 MG Tablet PO (08:24)
[2022-12-15] MEDS: hydroCHLOROthiazide 25 MG Tablet PO (08:24)
[2022-12-15 08:28] VITALS: BP 119/43; PULSE 77
[2022-12-15] MEDS: Hydrocortisone 25 MG Suppository RC (10:32)
[2022-12-15 16:00] VITALS: BP 111/62; PULSE 74; RESP 16; TEMP 36.7; O2SAT 94
[2022-12-15] MEDS: Atorvastatin Calcium 10 MG Tablet 5 MG PO (21:40)
[2022-12-15] MEDS: traZODone 50 MG Tablet PO (21:42)
[2022-12-15] MEDS: Donepezil HCl 5 MG Tablet PO (21:42)
[2022-12-16] MEDS: Cholecalciferol (VIT D3) 25 MCG TABLET (1,000 UNITS) 50 MCG PO (04:48)
[2022-12-16] MEDS: Lisinopril 40 MG Tablet PO (04:49)
[2022-12-16] MEDS: Pantoprazole Sodium 20 MG Tablet PO (04:49)
[2022-12-16] MEDS: Glycerin/Hypromellose/PEG400 15 ml Bottle 2 DRP EACH EYE (04:49)
[2022-12-16 04:53] LABS: Mucous, Urine 0 SEEN /hpf (<or=2+); Squamous Epithelial Cells - UA 0 SEEN /hpf (5-10); White Blood Cells 0 SEEN /hpf (0-5)
[2022-12-16 04:56] VITALS: BP 133/49; PULSE 82
[2022-12-16 05:01] LABS: Glucose, Dipstick Normal (Normal); Ketone-Dipstick Negative (Negative); Leukocyte Esterase-Dipstick Negative /ul (Negative); Nitrite-Dipstick Negative (Negative); Occult Blood-Urine Negative /ul (Negative); Protein-Dipstick Negative (Negative); Urine Bilirubin Dipstick Negative (Negative); Urine Urobilinogen Normal (Normal)
[2022-12-16 05:22] LABS: Color, Urine Yellow (Yellow); Urine Clarity Clear (Clear)
[2022-12-16 05:31] LABS: Bacteria 1+ /hpf (None Seen); Red Blood Cells-Urine 0-5 SEEN /hpf (0-5)
[2022-12-16] MEDS: hydroCHLOROthiazide 25 MG Tablet PO (07:58)
[2022-12-16] MEDS: Carvedilol 25 MG Tablet PO ×2 (07:58→17:09)
[2022-12-16] MEDS: amLODIPine 5 MG Tablet PO (07:58)
[2022-12-16 15:13] VITALS: BP 98/40; PULSE 76; RESP 16; TEMP 36.4; O2SAT 96
[2022-12-16] MEDS: Hydrocortisone 2.5% Crm 1 APPLIC TOPICAL (17:08)
[2022-12-16 17:09] VITALS: BP 110/53; PULSE 75
[2022-12-16 19:55] VITALS: PULSE 74; RESP 18; O2SAT 96
[2022-12-16] MEDS: traZODone 50 MG Tablet PO (21:52)
[2022-12-16] MEDS: Donepezil HCl 5 MG Tablet PO (21:52)
[2022-12-16] MEDS: Atorvastatin Calcium 10 MG Tablet 5 MG PO (21:52)
[2022-12-17] MEDS: Lisinopril 40 MG Tablet PO (06:07)
[2022-12-17] MEDS: Pantoprazole Sodium 20 MG Tablet PO (06:07)
[2022-12-17] MEDS: Cholecalciferol (VIT D3) 25 MCG TABLET (1,000 UNITS) 50 MCG PO (06:07)
[2022-12-17] MEDS: Senna/Docusate Sodium 1 Tablet PO (06:07)
[2022-12-17 06:11] VITALS: BP 122/47; PULSE 72
[2022-12-17] MEDS: amLODIPine 5 MG Tablet PO (08:09)
[2022-12-17] MEDS: Carvedilol 25 MG Tablet PO ×2 (08:09→18:07)
[2022-12-17] MEDS: hydroCHLOROthiazide 25 MG Tablet PO (08:09)
[2022-12-17 08:12] VITALS: BP 119/52; PULSE 78
[2022-12-17 09:25] VITALS: BMI 24.0
[2022-12-17 16:00] VITALS: BP 108/47; PULSE 72; RESP 16; TEMP 36.6; O2SAT 96
--- NOTE | 2022-12-17 16:26 | CASEMGMT ---
Social Work BIMS (06/01) and PHQ-9 (09/13) completed for MDS assessment. Trinh Hicks MSW FINAL CLEANER
[2022-12-17 18:08] VITALS: BP 127/53; PULSE 77
[2022-12-17] MEDS: Atorvastatin Calcium 10 MG Tablet 5 MG PO (20:42)
[2022-12-17] MEDS: traZODone 50 MG Tablet PO (20:42)
[2022-12-17] MEDS: Donepezil HCl 5 MG Tablet PO (20:43)
[2022-12-18] MEDS: Acetaminophen 500 MG Tablet 1000 MG PO (03:03)
[2022-12-18 06:04] LABS: Absolute Lymphocyte Count 2.27 X10^3/uL (0.83-4.51); Absolute Neutrophil Count 5.6 X10^3/uL (2.0-7.7); Basophil# 0.02 X10^3/uL; Basophil% 0.2 % (0-1); Eosinophil# 0.17 X10^3/uL; Eosinophils% 1.9 % (0-5); Hematocrit 34.1 % (37-47); Hemoglobin 11.2 g/dL (12.0-15.0); Lymphocyte # 2.27 X10^3/ul (0.83-4.51); Lymphocyte % 25.9 % (19-41); Mean Corp Hgb Conc 32.8 g/dL (32-36); Mean Corpuscular Hgb 31.6 pg (27.0-32.0); Mean Corpuscular Volume 96.3 fL (81-99); Mean Platelet Vol. 10.2 fl (6.2-12.0); Monocyte# 0.65 X10^3/uL; Monocyte% 7.4 % (0-10); NRBC Flagged by Analyzer 0 % (0-5); Neutrophil # 5.62 X10^3/uL (2.7-7.7); Neutrophil % 64.3 % (47-70); Platelet Count 277 K/mm3 (150-450); RBC Distribution Width CV 13.3 % (11.6-14.6); RBC Distribution Width SD 47.7 fl (35.1-43.9); Red Blood Count 3.54 M/mm3 (4.2-5.4); White Blood Count 8.8 K/mm3 (4.4-11.0)
[2022-12-18] MEDS: Pantoprazole Sodium 20 MG Tablet PO (06:43)
[2022-12-18] MEDS: Cholecalciferol (VIT D3) 25 MCG TABLET (1,000 UNITS) 50 MCG PO (06:43)
[2022-12-18] MEDS: Senna/Docusate Sodium 1 Tablet PO ×2 (06:43→16:37)
[2022-12-18] MEDS: Lisinopril 40 MG Tablet PO (06:43)
[2022-12-18 06:49] LABS: Anion Gap 10 (5-15); BUN 27 mg/dL (7-18); Calcium,Total 9.4 mg/dL (8.5-10.1); Chloride 101 mmol/L (98-107); EST Glomerular Filtration Rate 56 mL/min (>60); Est Glom Filt Rate - Afr Amer 68 mL/min (>60); Glucose 133 mg/dL (74-106); Potassium 3.5 mmol/L (3.5-5.1); Sodium Level 137 mmol/L (136-145)
[2022-12-18] MEDS: amLODIPine 5 MG Tablet PO (07:47)
[2022-12-18] MEDS: Carvedilol 25 MG Tablet PO ×2 (07:47→16:37)
[2022-12-18] MEDS: hydroCHLOROthiazide 25 MG Tablet PO (07:47)
[2022-12-18 07:56] VITALS: BP 136/52; PULSE 71
[2022-12-18] MEDS: Hydrocortisone 25 MG Suppository RC (12:20)
[2022-12-18] MEDS: Tuberculin,Purif.prot.deriv. 50 TU/ML Vial 0.1 ML ID (12:21)
--- NOTE | 2022-12-18 13:51 | CASEMGMT ---
Addendum entered by Trinh Hicks 12/18/22 15:39: Spoke with dtr to review DC options in detail. Educated to [facility], AL and SNF, payment options. Discussed Medicaid. Dtr does not know about pt's finances and suggested contacting . SW explained it is difficult to hire [facility] [employer] [facility] in this time frame but this worker can place pt in AL or SNF, even if it is just temporary. Dtr expressed understanding. SW to first speak with to determine financial ability, and then determine placement options. Dtr appreciative of assistance. SW contacted and discussed options and finances. Pt is over resources to qualify for ROSSY. Discussed AL respite stay for a month or less until family can secure additional assistance in the home. Explored having move to AL or SNF with pt, spennd down the resources and apply for ROSSY. not opposed to any options, but currently at [facility] [employer] and can no longer converse. asked this worker to send an email with resources and information discussed. to contact this worker tomorrow with a plan. SW sent email with resources of AL, [facility], SNF, [facility]. SW spoke with dtr to update and also sent resources via email to dtr. Will continue to follow. plan: DC 5/6, unsure of destination and needs Original Note: Social Work IDT met with patient and then dtr via conference call for care plan meeting. Discussed patient's progress in PT/OT/ST/SN. Educated to [facility] insurance and issuing LCD 5/5, DC 5/6. Dtr expressed having huge concern with pt returning home and not having hands-on assistance. IDT agrees and is recommending 24/ care for assistance and safety. Dtr became tearful and overwhelmed. SW offered to call dtr after meeting to discuss further in detail. Dtr agreed. SW asked pt if she would be agreeable to the plan dtr and this worker suggest, i.e. home with [facility] or AL, dtr agreed. SW to continue to follow. Trinh Hicks, GEORGI JOYW
[2022-12-18 13:53] VITALS: BP 127/38; PULSE 73; RESP 14; TEMP 37.1; O2SAT 94
[2022-12-18 16:39] VITALS: BP 145/49; PULSE 74
[2022-12-18] MEDS: Donepezil HCl 5 MG Tablet PO (20:11)
[2022-12-18] MEDS: traZODone 100 MG Tablet PO (20:11)
[2022-12-18] MEDS: Atorvastatin Calcium 10 MG Tablet 5 MG PO (20:11)
--- NOTE | 2022-12-18 20:43 | DS.PCM_ITS ---
Providers Date of Admission: 12/10/22 Primary Care Physician: MADISON Gonzalez Reason For Visit: DEBILITY DUE TO MECHANICAL FALL Diagnosis Discharge Diagnosis (1) Debility: Status: Acute Code(s): R53.81 - Other malaise (2) Fall: Status: Acute Code(s): W19.XXXA - Unspecified fall, initial encounter (3) Scalp laceration: Status: Acute Code(s): S01.01XA - Laceration without foreign body of scalp, initial encounter (4) Hypercalcemia: Status: Acute Code(s): E83.52 - Hypercalcemia (5) Dehydration: Status: Acute Code(s): E86.0 - Dehydration (6) Hypertension: Status: Chronic Code(s): I10 - Essential (primary) hypertension (7) Dementia: Status: Acute Code(s): F03.90 - Unspecified dementia, unspecified severity, without behavioral disturbance, psychotic disturbance, mood disturbance, and anxiety Plan 82 year old female with below past medical history hospitalized for fall, scalp laceration, ruled out urinary tract infection, complicated by hypercalcemia, dehydration, admitted to TCU with debility, here for rehabilitation, strengthening, prior to discharge home with . * Debility - PT/OT. * Pain - Tylenol 1000mg q6h prn pain (1-10). * Bowel - senna/colace 1 tablet bid, MOM 30ml po x 1 prn. * Adult immunization - Administer pneumonia vaccine, covid19 vaccine, flu vaccine as appropriate. * DVT prophylaxis - Hold, monitor. * Scalp laceration - suture removal 12/16/2022. * Hypertension - Coreg 25mg bid, Lisinopril 40mg daily, HCTZ 25mg daily, Amlodipine 5mg daily. * Hyperlipidemia - Atorvastatin 5mg qhs. * Alzheimer Disease - Donepezil 5mg qhs. * GERD - Pantoprazole 20mg daily. * Insomnia - Trazodone 50mg qhs. * Vitamin D deficiency - D3 50mcg daily. Medications at Discharge Home Medications amlodipine 5 mg tablet 5 mg PO DAILY BP 12/06/22 cholecalciferol (vitamin D3) 25 mcg (1,000 unit) capsule (Vitamin D3) 50 mcg PO DAILY Supplement 12/06/22 donepezil 5 mg tablet 5 mg PO QHS Alzheimer's 12/06/22 hydrochlorothiazide 25 mg tablet 25 mg PO DAILY Heart 12/06/22 lisinopril 40 mg tablet 40 mg PO DAILY bp 12/06/22 omeprazole 20 mg capsule,delayed release 20 mg PO DAILY GERD 12/06/22 simvastatin 10 mg tablet 10 mg PO QHS Cholesterol 12/06/22 trazodone 50 mg tablet 50 mg PO QHS Sleep 12/06/22 carvedilol 25 mg tablet 25 mg PO BIDCM 30 days #60 tabs 12/18/22 Hospital Course Operations None Procedures None Summary of Care Provided Minutes Spent on Discharge: 35 Hospital Course: 82 year old female with below past medical history hospitalized for fall, scalp laceration, ruled out urinary tract infection, complicated by hypercalcemia, dehydration, admitted to TCU with debility, here for rehabilitation, strengthening, prior to discharge home with . Discharge 12/21/2022, unsure of destination, and needs. Physical Exam Const alert General Appearance: cooperative HEENT normocephalic Eyes PERRL and EOMs intact bilaterally Neck supple, no JVD and no carotid bruits Resp normal respiratory effort, normal air movement and clear to auscultation bilaterally Cardio regular rate and regular rhythm GI normal to inspection, nondistended, normoactive bowel sounds, non-tender and non-distended Extremity normal capillary refill General Extremity: Negative for edema Skin no rashes or lesions noted General Skin Exam: no breakdown Psych affect normal Appearance: appropriate Weight / BMI Weight Weight: 61.552 kg Body Mass Index (BMI) 24.0 ABG / Lab / Microbiology Data Result Diagrams: 12/18/22 05:27 12/18/22 05:27 Laboratory: Laboratory Results - last 24 hr 12/18/22 05:27: WBC 8.8, RBC 3.54 L, Hgb 11.2 L, Hct 34.1 L, MCV 96.3, MCH 31.6, MCHC 32.8, RDW Std Deviation 47.7 H, RDW Coeff of Lisa 13.3, Plt Count 277, MPV 10.2, Immature Gran % (Auto) 0.300, Neut % (Auto) 64.3, Lymph % (Auto) 25.9, Moore % (Auto) 7.4, Eos % (Auto) 1.9, Baso % (Auto) 0.2, Absolute Neuts (auto) 5.6, Absolute Lymphs (auto) 2.27, Nucleated RBC % 0 12/18/22 05:27: Sodium 137, Potassium 3.5, Chloride 101, Carbon Dioxide 26.0, Anion Gap 10, BUN 27 H, Creatinine 1.00, Estim Creat Clear Calc 36.50, Est GFR (MDRD) Af Amer 68, Est GFR (MDRD) Non-Af 56 L, BUN/Creatinine Ratio 27.0 H, Glucose 133 H, Calcium 9.4 Microbiology: Microbiology 12/16/22 04:35 Urine Catheter - Catheter Urine Culture - Final Culture exhibits no growth. 12/14/22 11:25 Nasal Secretion SARS-CoV-2 Antigen (Rapid) - Final 12/12/22 05:30 Nasal Secretion SARS-CoV-2 Antigen (Rapid) - Final 12/10/22 22:00 Nasal Secretion SARS-CoV-2 Antigen (Rapid) - Final D/C Instructions Discharge Diet: No restrictions Discharge Activity: Return to Normal Activity, May Shower and Use Walker Weight Bearing Status: Weight bearing as tolerated Call your doctor if you observe: Fever of 101 or Higher, Inability to urinate, Inability to have a bowel movement, Shortness of breath, Dizziness, Fainting spells, Swelling in the ankles, Chest pain and Uncontrolled pain Additional Instructions: Discharge 12/21/2022, unsure of destination, and needs. Please Follow Up With: MADISON Mera When: 1 week. Meaningful Use Info Meaningful Use Diagnoses (Choose all that apply): None applicable Discharge Plan Admission Admit Date/Time: 12/10/22 18:05 Primary Reason for Your Visit: Debility. Attending Provider: Ruslan Ramesh Chi Primary Care Provider: Argentina Madison Instructions Additional Instructions / Restrictions: Discharge 12/21/2022, unsure of destination, and needs. Discharge Orders/Prescriptions Prescriptions: New carvedilol 25 mg Tablet 25 mg PO BIDCM 30 Days Qty: 60 0RF Continued donepezil 5 mg tablet 5 mg PO QHS trazodone 50 mg tablet 50 mg PO QHS simvastatin 10 mg tablet 10 mg PO QHS amlodipine 5 mg tablet 5 mg PO DAILY Label Comments: TAKE 1 TABLET BY MOUTH ONCE DAILY omeprazole 20 mg capsule,delayed release(DR/EC) 20 mg PO DAILY hydrochlorothiazide 25 mg tablet 25 mg PO DAILY lisinopril 40 mg tablet 40 mg PO DAILY cholecalciferol (vitamin D3) [Vitamin D3] 25 mcg (1,000 unit) Capsule 50 mcg PO DAILY Discontinued vitamin E 400 unit Tablet 400 unit PO BID carvedilol 25 mg tablet 25 mg PO BID Referrals / Follow Up: Argentina Madison PA [Primary Care Provider] - Disposition Disposition (needs filled in before D/C Order can be placed): Home Health Service
[2022-12-18 22:00] VITALS: PULSE 73; RESP 16; O2SAT 98
[2022-12-19] MEDS: Pantoprazole Sodium 20 MG Tablet PO (05:34)
[2022-12-19] MEDS: Lisinopril 40 MG Tablet PO (05:34)
[2022-12-19] MEDS: Senna/Docusate Sodium 1 Tablet PO (05:34)
[2022-12-19] MEDS: Cholecalciferol (VIT D3) 25 MCG TABLET (1,000 UNITS) 50 MCG PO (05:34)
[2022-12-19] MEDS: amLODIPine 5 MG Tablet PO (07:44)
[2022-12-19] MEDS: Carvedilol 25 MG Tablet PO ×2 (07:44→16:48)
[2022-12-19] MEDS: hydroCHLOROthiazide 25 MG Tablet PO (07:44)
[2022-12-19 07:47] VITALS: BP 118/54; PULSE 67
[2022-12-19 07:48] VITALS: PULSE 90; RESP 16; O2SAT 93
[2022-12-19] MEDS: Hydrocortisone 2.5% Crm 1 APPLIC TOPICAL (08:03)
--- NOTE | 2022-12-19 10:29 | CASEMGMT ---
Addendum entered by Trinh Hicks 12/19/22 14:11: SW met with patient and in room. Assisted in completing the Medicaid application. Faxed to [facility]. Sent to [facility] and [facility], upon request. Both facilities can accept pending financial risk assessment with . [facility] does not have any beds. Still waiting on [facility]. Will continue to follow. Original Note: Social Work Received call from dtr and via conference call to discuss DC plans. SW revisited financial information and provided yearly income previously, not checking/savings/resource amount. Pt and will definitely qualify with assets. agreed to come in for this worker to assist with completing Medicaid application. Discussed SNF choices. and dtr agreed on referrals to [facility], [facility] and [facility]. SW did caution placement may be difficult with admitting on a ROSSY pending number as that is a liability to facilities. Both expressed understanding. SW [facility]. Will continue to follow. Trinh Hicks, GEORGI JOYW
[2022-12-19 15:22] VITALS: BP 118/60; PULSE 81; RESP 17; TEMP 37.1; O2SAT 95
[2022-12-19] MEDS: traZODone 100 MG Tablet PO (20:26)
[2022-12-19] MEDS: Atorvastatin Calcium 10 MG Tablet 5 MG PO (20:26)
[2022-12-19] MEDS: Donepezil HCl 5 MG Tablet PO (20:26)
[2022-12-20] MEDS: Cholecalciferol (VIT D3) 25 MCG TABLET (1,000 UNITS) 50 MCG PO (05:48)
[2022-12-20] MEDS: Pantoprazole Sodium 20 MG Tablet PO (05:48)
[2022-12-20] MEDS: Senna/Docusate Sodium 1 Tablet PO ×2 (05:49→17:17)
[2022-12-20] MEDS: Lisinopril 40 MG Tablet PO (05:49)
[2022-12-20 07:30] VITALS: BP 148/47; PULSE 83
[2022-12-20] MEDS: amLODIPine 5 MG Tablet PO (07:31)
[2022-12-20] MEDS: Carvedilol 25 MG Tablet PO ×2 (07:31→17:18)
[2022-12-20] MEDS: hydroCHLOROthiazide 25 MG Tablet PO (07:31)
--- NOTE | 2022-12-20 10:29 | CASEMGMT ---
Social Work [facility] can accept MCD[facility]. [facility] is still reviewing. Received Medicaid pending number [id number] GEORGI GuillaumeW
--- NOTE | 2022-12-20 15:51 | CASEMGMT ---
Social Work SW sent message in [employer] and left voicemail with admissions at [facility] for update as that is FOC. Have not heard back at this time. SW contacted dtr stating [facility] has accepted and d/t to time restraints, if it is okay for pt to admit there. Dtr agreed and understood. Dtr cannot transport. SW spoke with to update on above. agreeable and prefers w/c transport be scheduled. SW updated [facility] via [employer]. Sent DC paperwork and completed [facility]. Scheduled w/c transport for 1300 through [facility]. Plan: DC 5 to [facility], Intermediate, MCDP Trinh Hicks, [employer]
[2022-12-20 16:00] VITALS: BP 130/48; PULSE 70; RESP 16; TEMP 36.4; O2SAT 97
--- NOTE | 2022-12-20 19:26 | TREXTCAR_ITS ---
Diet Diet Order/Speech Therapy: 12/18/22 14:37 Diet: Regular - General Is pt able to select menu?: Yes Routine Orders/Code Status Code Status: Full Code Wound(s) right forehead: Wound Type: Laceration bilateral knees: Wound Type: Abrasion Therapies Weight Bearing: Weight bearing as tolerated Extremity Affected:: Bilateral Lower Physical Therapy: Eval and Treat Occupational Therapy: Eval and Treat Speech Therapy: Eval and Treat Problem/Diagnosis (1) Debility: Status: Acute Code(s): R53.81 - Other malaise (2) Fall: Status: Acute Code(s): W19.XXXA - Unspecified fall, initial encounter (3) Scalp laceration: Status: Acute Code(s): S01.01XA - Laceration without foreign body of scalp, initial encounter (4) Hypercalcemia: Status: Acute Code(s): E83.52 - Hypercalcemia (5) Dehydration: Status: Acute Code(s): E86.0 - Dehydration (6) Hypertension: Status: Chronic Code(s): I10 - Essential (primary) hypertension (7) Dementia: Status: Acute Code(s): F03.90 - Unspecified dementia, unspecified severity, without behavioral disturbance, psychotic disturbance, mood disturbance, and anxiety Plan 82 year old female with below past medical history hospitalized for fall, scalp laceration, ruled out urinary tract infection, complicated by hypercalcemia, dehydration, admitted to TCU with debility, here for rehabilitation, strengthening, prior to discharge home with . * Debility - PT/OT. * Pain - Tylenol 1000mg q6h prn pain (1-10). * Bowel - senna/colace 1 tablet bid, MOM 30ml po x 1 prn. * Adult immunization - Administer pneumonia vaccine, covid19 vaccine, flu vaccine as appropriate. * DVT prophylaxis - Hold, monitor. * Scalp laceration - suture removal 12/16/2022. * Hypertension - Coreg 25mg bid, Lisinopril 40mg daily, HCTZ 25mg daily, Am lodipine 5mg daily. * Hyperlipidemia - Atorvastatin 5mg qhs. * Alzheimer Disease - Donepezil 5mg qhs. * GERD - Pantoprazole 20mg daily. * Insomnia - Trazodone 50mg qhs. * Vitamin D deficiency - D3 50mcg daily. Allergies/Procedures Done in Hospital Allergies Sulfa (Sulfonamide Antibiotics) Allergy (Verified 12/06/22 09:55) Rash Influenza Virus Vaccines Adverse Reaction (Verified 12/06/22 09:55) Other Procedures: None Type of Care/Length of Stay Estimated LOS: More Than 30 Days Type of Care Needed: Intermediate Rehab Potential: Good Prognosis: Good Additional Orders/Day of Discharge Additional Orders: part B therapies Day of Discharge: 12/21/22 Dietary and Speech Recommendations Dietitian Recommendations/Changes: Will liberalize diet to Regular d/t variable po intake, advanced age and dementia. Follow Up Care Please Follow Up With: MADISON Mera When: 10 days after surgery for staple removal Discharge Plan Admission Admit Date/Time: 12/10/22 18:05 Primary Reason for Your Visit: Debility. Attending Provider: Ruslan Ramesh Chi Primary Care Provider: Argentina Madison Instructions Additional Instructions / Restrictions: Discharge [facility] 12/21/2022, intermediate, Medicaid pending. Discharge Orders/Prescriptions Prescriptions: New carvedilol 25 mg Tablet 25 mg PO BIDCM 30 Days Qty: 60 0RF Continued donepezil 5 mg tablet 5 mg PO QHS trazodone 50 mg tablet 50 mg PO QHS simvastatin 10 mg tablet 10 mg PO QHS amlodipine 5 mg tablet 5 mg PO DAILY Label Comments: TAKE 1 TABLET BY MOUTH ONCE DAILY omeprazole 20 mg capsule,delayed release(DR/EC) 20 mg PO DAILY hydrochlorothiazide 25 mg tablet 25 mg PO DAILY lisinopril 40 mg tablet 40 mg PO DAILY cholecalciferol (vitamin D3) [Vitamin D3] 25 mcg (1,000 unit) Capsule 50 mcg PO DAILY Discontinued vitamin E 400 unit Tablet 400 unit PO BID carvedilol 25 mg tablet 25 mg PO BID Referrals / Follow Up: Argentina Madison PA [Primary Care Provider] - Disposition Disposition (needs filled in before D/C Order can be placed): NonSkilled NH/Intermed Care
[2022-12-20] MEDS: traZODone 100 MG Tablet PO (20:45)
[2022-12-20] MEDS: Atorvastatin Calcium 10 MG Tablet 5 MG PO (20:45)
[2022-12-20] MEDS: Acetaminophen 500 MG Tablet 1000 MG PO (20:46)
[2022-12-20] MEDS: Donepezil HCl 5 MG Tablet PO (20:46)
[2022-12-20 20:53] VITALS: PULSE 66; RESP 16; O2SAT 96
[2022-12-20] MEDS: Hydrocortisone 2.5% Crm 1 APPLIC TOPICAL (21:05)
[2022-12-21] MEDS: Pantoprazole Sodium 20 MG Tablet PO (05:35)
[2022-12-21] MEDS: Senna/Docusate Sodium 1 Tablet PO (05:36)
[2022-12-21] MEDS: Lisinopril 40 MG Tablet PO (05:36)
[2022-12-21] MEDS: Cholecalciferol (VIT D3) 25 MCG TABLET (1,000 UNITS) 50 MCG PO (05:36)
[2022-12-21 05:39] VITALS: BP 119/51; PULSE 75
[2022-12-21 08:58] VITALS: BP 112/59; PULSE 77
[2022-12-21] MEDS: amLODIPine 5 MG Tablet PO (09:06)
[2022-12-21] MEDS: Carvedilol 25 MG Tablet PO (09:06)
[2022-12-21] MEDS: hydroCHLOROthiazide 25 MG Tablet PO (09:06)
[2022-12-21 10:43] VITALS: PULSE 72; O2SAT 94
--- NOTE | 2022-12-21 11:57 | NURSING ---
Report called to [facility] and given to nurse Small.
[2022-12-21 12:33] VITALS: BP 146/53; PULSE 72; RESP 17; TEMP 36.8; O2SAT 100
--- NOTE | 2022-12-23 08:43 | MDS.RN ---
Information for the mds was obtained from review of the clinical record, interview of resident, staff, and direct observation of resident's care.
== END 2022-12-21 13:39 | disposition intermediate care facility (04) | DRG 950 ==
PROVIDERS: Admitting Provider Family Medicine Geriatric Medicine; PCP Physician Assistant; Visit Provider Family Medicine Geriatric Medicine
DX: S01.01XD Laceration without foreign body of scalp, subsequent encounter (principal); F02.80 Dementia in other diseases classified elsewhere, unspecified severity, without behavioral disturbance, psychotic disturbance, mood disturbance, and anxiety; E55.9 Vitamin D deficiency, unspecified; G30.9 Alzheimer's disease, unspecified; I10 Essential (primary) hypertension; W19.XXXD Unspecified fall, subsequent encounter; E78.5 Hyperlipidemia, unspecified; K21.9 Gastro-esophageal reflux disease without esophagitis; Z87.891 Personal history of nicotine dependence; Z79.899 Other long term (current) drug therapy; Z23 Encounter for immunization
CPT/HCPCS: 36415; 80048; 81001; 85025; 87086; 87811; 92507; 92523; 97110; 97116; 97129; 97130; 97162; 97166; 97530; 97533; 97535; 97802; G0008; 90686

== ENCOUNTER → 2022-12-25 | Outpatient (REF) | payer MEDICARE, SELFPAY ==
[2022-12-25 10:27] LABS: Vitamin B12 314 pg/mL (211-911); Vitamin D,25 Hydroxy 57.6 ng/mL
[2022-12-25 10:35] LABS: Absolute Lymphocyte Count 1.89 X10^3/uL (0.83-4.51); Absolute Neutrophil Count 4.2 X10^3/uL (2.0-7.7); Basophil# 0.03 X10^3/uL; Basophil% 0.4 % (0-1); Eosinophil# 0.11 X10^3/uL; Eosinophils% 1.6 % (0-5); Hematocrit 35.4 % (37-47); Hemoglobin 11.4 g/dL (12.0-15.0); Lymphocyte # 1.89 X10^3/ul (0.83-4.51); Lymphocyte % 27.6 % (19-41); Mean Corp Hgb Conc 32.2 g/dL (32-36); Mean Corpuscular Hgb 31.5 pg (27.0-32.0); Mean Corpuscular Volume 97.8 fL (81-99); Mean Platelet Vol. 10.9 fl (6.2-12.0); Monocyte# 0.64 X10^3/uL; Monocyte% 9.4 % (0-10); NRBC Flagged by Analyzer 0 % (0-5); Neutrophil # 4.15 X10^3/uL (2.7-7.7); Neutrophil % 60.7 % (47-70); Platelet Count 303 K/mm3 (150-450); RBC Distribution Width CV 13.3 % (11.6-14.6); RBC Distribution Width SD 48.1 fl (35.1-43.9); Red Blood Count 3.62 M/mm3 (4.2-5.4); White Blood Count 6.8 K/mm3 (4.4-11.0)
[2022-12-25 10:37] LABS: Anion Gap 7 (5-15); BUN 24 mg/dL (7-18); BUN/Creat Ratio 35.8 RATIO (10-20); Calcium,Total 9.3 mg/dL (8.5-10.1); Chloride 103 mmol/L (98-107); Creatinine, Serum 0.67 mg/dL (0.55-1.02); EST Glomerular Filtration Rate 90 mL/min (>60); Est Glom Filt Rate - Afr Amer 108 mL/min (>60); Glucose 101 mg/dL (74-106); Magnesium 1.6 mg/dL (1.6-2.6); Sodium Level 138 mmol/L (136-145)
== END ==
LOC: OLS.SW 05:00
PROVIDERS: PCP Physician Assistant; Visit Provider Internal Medicine
DX: Z02.2 Encounter for examination for admission to residential institution (principal); Z79.899 Other long term (current) drug therapy; E55.9 Vitamin D deficiency, unspecified
CPT/HCPCS: 36415; 80048; 82306; 82607; 83735; 85025

== ENCOUNTER → 2022-12-30 | Outpatient (REF) | payer MEDICARE, MEDICAID, SELFPAY ==
[2022-12-30 09:09] LABS: Hematocrit 33.7 % (37-47); Hemoglobin 11.2 g/dL (12.0-15.0); Mean Corp Hgb Conc 33.2 g/dL (32-36); Mean Corpuscular Volume 96.3 fL (81-99); Platelet Count 299 K/mm3 (150-450); RBC Distribution Width CV 13.6 % (11.6-14.6); RBC Distribution Width SD 48.4 fl (35.1-43.9); White Blood Count 8.3 K/mm3 (4.4-11.0)
[2022-12-30 09:30] LABS: Anion Gap 8 (5-15); BUN 22 mg/dL (7-18); BUN/Creat Ratio 30.7 RATIO (10-20); Calcium,Total 9.2 mg/dL (8.5-10.1); Chloride 102 mmol/L (98-107); Cholesterol 143 mg/dL (200); Creatinine, Serum 0.72 mg/dL (0.55-1.02); EST Glomerular Filtration Rate 83 mL/min (>60); Est Glom Filt Rate - Afr Amer 100 mL/min (>60); Glucose 111 mg/dL (74-106); High Density Lipoprotein 56 mg/dL; Magnesium 1.1 mg/dL (1.6-2.6); Potassium 3.3 mmol/L (3.5-5.1); Sodium Level 141 mmol/L (136-145); Triglycerides 75 mg/dL; Uric Acid 6.6 mg/dL (2.6-6.0); Very Low Density Lipoprotein 15 mg/dL (5-40)
== END ==
LOC: OLS.SW 05:00
PROVIDERS: PCP Physician Assistant; Visit Provider Internal Medicine
DX: G30.9 Alzheimer's disease, unspecified (principal); E55.9 Vitamin D deficiency, unspecified; E78.5 Hyperlipidemia, unspecified; I10 Essential (primary) hypertension
CPT/HCPCS: 36415; 80048; 80061; 83735; 84550; 85027

== ENCOUNTER → 2023-01-06 | Outpatient (REF) | payer MEDICARE, MEDICAID, SELFPAY ==
[2023-01-06 09:45] LABS: Hematocrit 35.4 % (37-47); Hemoglobin 11.3 g/dL (12.0-15.0); Mean Corp Hgb Conc 31.9 g/dL (32-36); Mean Corpuscular Hgb 31.6 pg (27.0-32.0); Mean Corpuscular Volume 98.9 fL (81-99); Mean Platelet Vol. 11.2 fl (6.2-12.0); Platelet Count 264 K/mm3 (150-450); RBC Distribution Width CV 13.6 % (11.6-14.6); RBC Distribution Width SD 49.9 fl (35.1-43.9); Red Blood Count 3.58 M/mm3 (4.2-5.4)
[2023-01-06 09:59] LABS: Anion Gap 6 (5-15); BUN 20 mg/dL (7-18); Calcium,Total 9.4 mg/dL (8.5-10.1); Chloride 103 mmol/L (98-107); Creatinine, Serum 0.74 mg/dL (0.55-1.02); EST Glomerular Filtration Rate 80 mL/min (>60); Est Glom Filt Rate - Afr Amer 96 mL/min (>60); Glucose 99 mg/dL (74-106); Potassium 3.7 mmol/L (3.5-5.1); Sodium Level 140 mmol/L (136-145)
[2023-01-07 05:11] LABS: Uric Acid 5.4 mg/dL (2.6-6.0)
== END ==
LOC: OLS.SW 04:00
PROVIDERS: PCP Physician Assistant; Visit Provider Internal Medicine
DX: M10.9 Gout, unspecified (principal); F02.80 Dementia in other diseases classified elsewhere, unspecified severity, without behavioral disturbance, psychotic disturbance, mood disturbance, and anxiety; I10 Essential (primary) hypertension; E83.52 Hypercalcemia
CPT/HCPCS: 36415; 80048; 83735; 84550; 85027

== ENCOUNTER → 2023-01-20 | Outpatient (REF) | payer MEDICARE, MEDICAID, SELFPAY ==
[2023-01-20 09:05] LABS: Hematocrit 38.2 % (37-47); Hemoglobin 12.2 g/dL (12.0-15.0); Mean Corp Hgb Conc 31.9 g/dL (32-36); Mean Corpuscular Hgb 31.2 pg (27.0-32.0); Mean Corpuscular Volume 97.7 fL (81-99); Mean Platelet Vol. 10.6 fl (6.2-12.0); Platelet Count 316 K/mm3 (150-450); RBC Distribution Width CV 13.5 % (11.6-14.6); RBC Distribution Width SD 48.5 fl (35.1-43.9); Red Blood Count 3.91 M/mm3 (4.2-5.4)
[2023-01-20 09:18] LABS: Anion Gap 3 (5-15); BUN 19 mg/dL (7-18); BUN/Creat Ratio 22.8 RATIO (10-20); Calcium,Total 9.5 mg/dL (8.5-10.1); Chloride 103 mmol/L (98-107); Creatinine, Serum 0.83 mg/dL (0.55-1.02); EST Glomerular Filtration Rate 70 mL/min (>60); Est Glom Filt Rate - Afr Amer 84 mL/min (>60); Glucose 104 mg/dL (74-106); Magnesium 2.2 mg/dL (1.6-2.6); Potassium 4.3 mmol/L (3.5-5.1); Sodium Level 136 mmol/L (136-145)
== END ==
LOC: OLS.SW 04:00
PROVIDERS: PCP Physician Assistant; Referring Provider Internal Medicine; Visit Provider Internal Medicine
DX: I10 Essential (primary) hypertension (principal); E78.5 Hyperlipidemia, unspecified
CPT/HCPCS: 36415; 80048; 83735; 85027

== ENCOUNTER → 2023-03-12 | Outpatient (REF) | payer MEDICARE, MEDICAID, SELFPAY ==
[2023-03-12 09:08] LABS: Hematocrit 34.3 % (37-47); Hemoglobin 11.4 g/dL (12.0-15.0); Mean Corp Hgb Conc 33.2 g/dL (32-36); Mean Corpuscular Volume 96.3 fL (81-99); Mean Platelet Vol. 11.2 fl (6.2-12.0); Platelet Count 257 K/mm3 (150-450); RBC Distribution Width CV 13.6 % (11.6-14.6); RBC Distribution Width SD 48.8 fl (35.1-43.9); Red Blood Count 3.56 M/mm3 (4.2-5.4); White Blood Count 7.2 K/mm3 (4.4-11.0)
== END ==
LOC: OLS.SW 05:00
PROVIDERS: PCP Physician Assistant; Visit Provider Internal Medicine
DX: I10 Essential (primary) hypertension (principal)
CPT/HCPCS: 36415; 85027

== ENCOUNTER → 2023-03-17 | Outpatient (REF) | payer MEDICARE, MEDICAID, SELFPAY ==
[2023-03-17 09:22] LABS: CRP < 2.90 mg/L (0.0-3.0); Uric Acid 6.2 mg/dL (2.6-6.0)
== END ==
LOC: OLS.SW 05:00
PROVIDERS: PCP Physician Assistant; Visit Provider Internal Medicine
DX: I10 Essential (primary) hypertension (principal); E83.52 Hypercalcemia; E55.9 Vitamin D deficiency, unspecified
CPT/HCPCS: 36415; 84550; 86140

== ENCOUNTER → 2023-04-30 | Outpatient (REF) | payer MEDICARE, MEDICAID, SELFPAY ==
[2023-04-30 11:58] LABS: M R Staph aureus DNA By PCR Negative (Negative); Probe Check PASS; Specimen Processing Control PASS
== END ==
LOC: OLS.SW 05:00
PROVIDERS: PCP Physician Assistant; Visit Provider Internal Medicine
DX: Z00.00 Encounter for general adult medical examination without abnormal findings (principal); B95.62 Methicillin resistant Staphylococcus aureus infection as the cause of diseases classified elsewhere
CPT/HCPCS: 87641

== ENCOUNTER → 2023-07-09 | Outpatient (REF) | payer MEDICARE, MEDICAID, SELFPAY ==
[2023-07-09 08:15] LABS: Absolute Lymphocyte Count 1.94 X10^3/uL (0.83-4.51); Basophil# 0.02 X10^3/uL; Basophil% 0.4 % (0-1); Eosinophil# 0.19 X10^3/uL; Eosinophils% 3.4 % (0-5); Hematocrit 36.3 % (37-47); Hemoglobin 11.7 g/dL (12.0-15.0); Lymphocyte # 1.94 X10^3/ul (0.83-4.51); Lymphocyte % 34.3 % (19-41); Mean Corp Hgb Conc 32.2 g/dL (32-36); Mean Platelet Vol. 11.1 fl (6.2-12.0); Monocyte# 0.52 X10^3/uL; Monocyte% 9.2 % (0-10); NRBC Flagged by Analyzer 0 % (0-5); Neutrophil # 2.97 X10^3/uL (2.7-7.7); Neutrophil % 52.3 % (47-70); Platelet Count 264 K/mm3 (150-450); RBC Distribution Width SD 50.1 fl (35.1-43.9); Red Blood Count 3.78 M/mm3 (4.2-5.4); White Blood Count 5.7 K/mm3 (4.4-11.0)
[2023-07-09 08:23] LABS: Anion Gap 2 (5-15); BUN 22 mg/dL (7-18); BUN/Creat Ratio 26.4 RATIO (10-20); Calcium,Total 9.5 mg/dL (8.5-10.1); Chloride 108 mmol/L (98-107); Creatinine, Serum 0.83 mg/dL (0.55-1.02); EST Glomerular Filtration Rate 70 mL/min (>60); Est Glom Filt Rate - Afr Amer 84 mL/min (>60); Glucose 102 mg/dL (74-106); Sodium Level 140 mmol/L (136-145)
== END ==
LOC: OLS.SW 06:55
PROVIDERS: PCP Physician Assistant; Visit Provider Internal Medicine
DX: Z13.0 Encounter for screening for diseases of the blood and blood-forming organs and certain disorders involving the immune mechanism (principal); Z79.899 Other long term (current) drug therapy
CPT/HCPCS: 36415; 80048; 85025

== ENCOUNTER → 2023-11-17 | Outpatient (REF) | payer MEDICARE, MEDICAID, SELFPAY ==
[2023-11-17 08:42] LABS: Hematocrit 38.8 % (37-47); Hemoglobin 12.7 g/dL (12.0-15.0); Mean Corp Hgb Conc 32.7 g/dL (32-36); Mean Corpuscular Hgb 32.1 pg (27.0-32.0); Mean Platelet Vol. 10.8 fl (6.2-12.0); Platelet Count 238 K/mm3 (150-450); RBC Distribution Width CV 13.8 % (11.6-14.6); RBC Distribution Width SD 50.4 fl (35.1-43.9); Red Blood Count 3.96 M/mm3 (4.2-5.4); White Blood Count 5.4 K/mm3 (4.4-11.0)
[2023-11-17 09:07] LABS: Vitamin D,25 Hydroxy 36.3 ng/mL
[2023-11-17 09:24] LABS: Anion Gap 5 (5-15); BUN 35 mg/dL (7-18); BUN/Creat Ratio 40.2 RATIO (10-20); Calcium,Total 9.3 mg/dL (8.5-10.1); Chloride 112 mmol/L (98-107); Creatinine, Serum 0.87 mg/dL (0.55-1.02); EST Glomerular Filtration Rate 66 mL/min (>60); Est Glom Filt Rate - Afr Amer 80 mL/min (>60); Glucose 112 mg/dL (74-106); Magnesium 2.4 mg/dL (1.6-2.6); Potassium 4.6 mmol/L (3.5-5.1); Sodium Level 143 mmol/L (136-145)
== END ==
LOC: OLS.SW 04:00
PROVIDERS: PCP Physician Assistant; Referring Provider Internal Medicine; Visit Provider Internal Medicine
DX: Z13.228 Encounter for screening for other metabolic disorders (principal); I10 Essential (primary) hypertension; F03.90 Unspecified dementia, unspecified severity, without behavioral disturbance, psychotic disturbance, mood disturbance, and anxiety; E55.9 Vitamin D deficiency, unspecified
CPT/HCPCS: 36415; 80048; 82306; 83735; 85027

== ENCOUNTER → 2024-02-18 05:00 | Outpatient (REF) | payer MEDICARE, SELFPAY ==
[2024-02-18 07:52] LABS: Hematocrit 35.8 % (37-47); Hemoglobin 11.8 g/dL (12.0-15.0); Mean Corpuscular Hgb 32.3 pg (27.0-32.0); Mean Corpuscular Volume 98.1 fL (81-99); Mean Platelet Vol. 11.7 fl (6.2-12.0); Platelet Count 225 K/mm3 (150-450); RBC Distribution Width CV 13.7 % (11.6-14.6); RBC Distribution Width SD 49.3 fl (35.1-43.9); Red Blood Count 3.65 M/mm3 (4.2-5.4); White Blood Count 6.1 K/mm3 (4.4-11.0)
[2024-02-18 08:32] LABS: Anion Gap 6 (5-15); BUN 32 mg/dL (7-18); BUN/Creat Ratio 38.1 RATIO (10-20); Calcium,Total 9.4 mg/dL (8.5-10.1); Chloride 111 mmol/L (98-107); Cholesterol 148 mg/dL (200); Creatinine, Serum 0.84 mg/dL (0.55-1.02); EST Glomerular Filtration Rate 69 mL/min (>60); Est Glom Filt Rate - Afr Amer 83 mL/min (>60); Glucose 94 mg/dL (74-106); High Density Lipoprotein 65 mg/dL; Potassium 4.3 mmol/L (3.5-5.1); Sodium Level 142 mmol/L (136-145); Triglycerides 99 mg/dL; Very Low Density Lipoprotein 20 mg/dL (5-40)
== END ==
LOC: OLS.SW 05:00
PROVIDERS: PCP Physician Assistant; Visit Provider Internal Medicine
DX: I10 Essential (primary) hypertension (principal); E78.5 Hyperlipidemia, unspecified; K21.9 Gastro-esophageal reflux disease without esophagitis; F02.80 Dementia in other diseases classified elsewhere, unspecified severity, without behavioral disturbance, psychotic disturbance, mood disturbance, and anxiety
CPT/HCPCS: 36415; 80048; 80061; 85027

== ENCOUNTER → 2024-02-25 05:00 | Outpatient (REF) | payer MEDICARE, SELFPAY ==
[2024-02-25 07:09] LABS: Cholesterol 145 mg/dL (200); High Density Lipoprotein 63 mg/dL; Triglycerides 107 mg/dL; Very Low Density Lipoprotein 21 mg/dL (5-40)
== END ==
LOC: OLS.SW 05:00
PROVIDERS: PCP Physician Assistant; Visit Provider Internal Medicine
DX: E78.5 Hyperlipidemia, unspecified (principal)
CPT/HCPCS: 36415; 80061

== ENCOUNTER → 2024-03-08 | Outpatient (REF) | payer MEDICARE, SELFPAY ==
[2024-03-08 08:24] LABS: Hematocrit 36.6 % (37-47); Hemoglobin 12.1 g/dL (12.0-15.0); Mean Corp Hgb Conc 33.1 g/dL (32-36); Mean Corpuscular Hgb 32.6 pg (27.0-32.0); Mean Corpuscular Volume 98.7 fL (81-99); Mean Platelet Vol. 11.9 fl (6.2-12.0); Platelet Count 221 K/mm3 (150-450); RBC Distribution Width CV 13.7 % (11.6-14.6); RBC Distribution Width SD 49.3 fl (35.1-43.9); Red Blood Count 3.71 M/mm3 (4.2-5.4); White Blood Count 6.2 K/mm3 (4.4-11.0)
== END ==
LOC: OLS.SW 05:40
PROVIDERS: PCP Physician Assistant; Referring Provider Internal Medicine; Visit Provider Internal Medicine
DX: K62.5 Hemorrhage of anus and rectum (principal)
CPT/HCPCS: 36415; 85027

== ENCOUNTER → 2024-03-22 | Outpatient (REF) | payer MEDICARE, SELFPAY ==
[2024-03-22 08:53] LABS: Absolute Lymphocyte Count 1.97 X10^3/uL (0.83-4.51); Absolute Neutrophil Count 3.2 X10^3/uL (2.0-7.7); Basophil# 0.04 X10^3/uL; Basophil% 0.7 % (0-1); Eosinophil# 0.13 X10^3/uL; Eosinophils% 2.2 % (0-5); Hematocrit 39.1 % (37-47); Hemoglobin 12.7 g/dL (12.0-15.0); Lymphocyte # 1.97 X10^3/ul (0.83-4.51); Lymphocyte % 33.2 % (19-41); Mean Corp Hgb Conc 32.5 g/dL (32-36); Mean Corpuscular Hgb 32.4 pg (27.0-32.0); Mean Corpuscular Volume 99.7 fL (81-99); Mean Platelet Vol. 11.7 fl (6.2-12.0); Monocyte# 0.64 X10^3/uL; Monocyte% 10.8 % (0-10); NRBC Flagged by Analyzer 0 % (0-5); Neutrophil # 3.15 X10^3/uL (2.7-7.7); Neutrophil % 52.9 % (47-70); Platelet Count 227 K/mm3 (150-450); RBC Distribution Width CV 13.4 % (11.6-14.6); RBC Distribution Width SD 49.8 fl (35.1-43.9); Red Blood Count 3.92 M/mm3 (4.2-5.4); White Blood Count 5.9 K/mm3 (4.4-11.0)
[2024-03-22 09:11] LABS: Anion Gap 6 (5-15); BUN 28 mg/dL (7-18); BUN/Creat Ratio 28.6 RATIO (10-20); Calcium,Total 9.5 mg/dL (8.5-10.1); Chloride 109 mmol/L (98-107); Creatinine, Serum 0.98 mg/dL (0.55-1.02); EST Glomerular Filtration Rate 58 mL/min (>60); Est Glom Filt Rate - Afr Amer 70 mL/min (>60); Glucose 93 mg/dL (74-106); Potassium 4.1 mmol/L (3.5-5.1); Sodium Level 143 mmol/L (136-145)
== END ==
LOC: OLS.SW 05:00
PROVIDERS: PCP Physician Assistant; Visit Provider Internal Medicine
DX: N39.0 Urinary tract infection, site not specified (principal); I10 Essential (primary) hypertension; G47.30 Sleep apnea, unspecified
CPT/HCPCS: 36415; 80048; 85025

== ENCOUNTER → 2024-03-31 | Outpatient (REF) | payer MEDICARE, SELFPAY ==
[2024-03-31 08:18] LABS: Hematocrit 36.8 % (37-47); Mean Corp Hgb Conc 32.6 g/dL (32-36); Mean Corpuscular Hgb 32.4 pg (27.0-32.0); Mean Corpuscular Volume 99.5 fL (81-99); Mean Platelet Vol. 11.7 fl (6.2-12.0); Platelet Count 219 K/mm3 (150-450); RBC Distribution Width CV 13.1 % (11.6-14.6); White Blood Count 5.1 K/mm3 (4.4-11.0)
[2024-03-31 08:38] LABS: AST(SGOT) 16 U/L (15-37); Alanine Aminotransfer ALT/SGPT 16 U/L (13-56); Albumin, Serum 3.2 g/dL (3.2-5.0); Alkaline Phosphatase 103 U/L (45-117); Anion Gap 4 (5-15); BUN 19 mg/dL (7-18); BUN/Creat Ratio 20.9 RATIO (10-20); Calcium,Total 9.1 mg/dL (8.5-10.1); Chloride 108 mmol/L (98-107); Creatinine, Serum 0.91 mg/dL (0.55-1.02); EST Glomerular Filtration Rate 63 mL/min (>60); Est Glom Filt Rate - Afr Amer 76 mL/min (>60); Globulin 3.1 g/dL (2.2-4.2); Glucose 99 mg/dL (74-106); Potassium 4.3 mmol/L (3.5-5.1); Protein, Total 6.3 g/dL (6.4-8.2); Sodium Level 141 mmol/L (136-145)
== END ==
LOC: OLS.SW 07:12
PROVIDERS: PCP Physician Assistant; Visit Provider Internal Medicine
DX: I10 Essential (primary) hypertension (principal); E78.5 Hyperlipidemia, unspecified
CPT/HCPCS: 36415; 80053; 85027

== ENCOUNTER → 2024-04-09 | Outpatient (CLI) | payer MEDICARE, SELFPAY ==
--- NOTE | 2024-04-09 13:53 | CT_ITS ---
STUDY: CT BRAIN WITH AND WITHOUT CONTRAST REASON FOR EXAM: Female, 84 years old. ALTERED MENTAL STATUS RADIATION DOSAGE (If Supplied By Facility): CTDIvol = ( 44.99 ) mGy, DLP = ( 1682.21 ) mGycm TECHNIQUE: Transaxial CT imaging of the brain was performed pre and post contrast administration. The examination was performed with intravenous administration of isovue 300 50ml. Individualized dose optimization techniques were used for this CT. COMPARISON: Comparison is made with prior study dated December 06, 2022. FINDINGS: Normal soft tissue structures. There is hyperostosis frontalis internus. There is mild cerebral atrophy with widening of the extra-axial spaces and ventricular dilatation. There are areas of decreased attenuation within the white matter tracts of the supratentorial brain, consistent with microvascular disease changes. There are small punctate calcifications of the basal ganglia which are seen in the aging brain as a normal variant. Normal brainstem. Normal cerebellum. There is no intracranial hemorrhage. There are no findings of an acute ischemic infarction. Atherosclerotic calcification of the cavernous portions of the internal carotid arteries. Normal visualized paranasal sinuses. CT/Brain/Head W/WO Contrast IMPRESSION: Chronic involutional changes of the brain. Electronically Signed: Errol Samano MD at 14:10 EDT ,
== END | disposition home or self-care (01) ==
PROVIDERS: PCP Physician Assistant
DX: R41.82 Altered mental status, unspecified (principal)
CPT/HCPCS: 70470

== ENCOUNTER → 2024-04-22 05:00 | Outpatient (REF) | payer MEDICARE, SELFPAY ==
[2024-04-22 08:45] LABS: Hematocrit 35.8 % (37-47); Hemoglobin 11.7 g/dL (12.0-15.0); Mean Corp Hgb Conc 32.7 g/dL (32-36); Mean Corpuscular Hgb 32.3 pg (27.0-32.0); Mean Corpuscular Volume 98.9 fL (81-99); Mean Platelet Vol. 11.6 fl (6.2-12.0); Platelet Count 249 K/mm3 (150-450); Red Blood Count 3.62 M/mm3 (4.2-5.4); White Blood Count 4.4 K/mm3 (4.4-11.0)
[2024-04-22 08:52] LABS: ALB/GLOB Ratio 0.9 RATIO (0.9-2.4); AST(SGOT) 17 U/L (15-37); Alanine Aminotransfer ALT/SGPT 18 U/L (13-56); Albumin, Serum 3.1 g/dL (3.2-5.0); Alkaline Phosphatase 94 U/L (45-117); Anion Gap 2 (5-15); BUN 24 mg/dL (7-18); BUN/Creat Ratio 31.1 RATIO (10-20); Calcium,Total 9.3 mg/dL (8.5-10.1); Chloride 112 mmol/L (98-107); Creatinine, Serum 0.77 mg/dL (0.55-1.02); EST Glomerular Filtration Rate 76 mL/min (>60); Est Glom Filt Rate - Afr Amer 92 mL/min (>60); Globulin 3.4 g/dL (2.2-4.2); Glucose 94 mg/dL (74-106); Potassium 4.3 mmol/L (3.5-5.1); Protein, Total 6.5 g/dL (6.4-8.2); Sodium Level 142 mmol/L (136-145)
== END ==
LOC: OLS.SW 05:00
PROVIDERS: PCP Physician Assistant; Visit Provider Internal Medicine
DX: I10 Essential (primary) hypertension (principal); E78.5 Hyperlipidemia, unspecified; R82.90 Unspecified abnormal findings in urine
CPT/HCPCS: 36415; 80053; 85027

== ENCOUNTER → 2024-04-23 22:20 | Outpatient (REF) | payer MEDICARE, SELFPAY ==
[2024-04-23 08:15] LABS: Color, Urine Yellow (Yellow); Glucose, Dipstick Normal (Normal); Ketone-Dipstick Negative (Negative); Leukocyte Esterase-Dipstick Negative /ul (Negative); Nitrite-Dipstick Negative (Negative); Occult Blood-Urine Negative /ul (Negative); Protein-Dipstick Negative (Negative); Urine Bilirubin Dipstick Negative (Negative); Urine Clarity Clear (Clear); Urine Urobilinogen Normal (Normal)
[2024-04-23 08:30] LABS: Bacteria 0 SEEN /hpf (None Seen); Mucous, Urine 0 SEEN /hpf (<or=2+); Red Blood Cells-Urine 0 SEEN /hpf (0-5); Squamous Epithelial Cells - UA 0-5 SEEN /hpf (5-10); White Blood Cells 0-5 SEEN /hpf (0-5)
== END ==
LOC: OLS.SW 22:20
PROVIDERS: PCP Physician Assistant; Visit Provider Internal Medicine
DX: R82.90 Unspecified abnormal findings in urine (principal)
CPT/HCPCS: 81001; 87086; 87088

== ENCOUNTER → 2024-06-07 | Outpatient (REF) | payer MEDICARE, MEDICAID, SELFPAY ==
[2024-06-07 09:36] LABS: Hematocrit 31.9 % (37-47); Hemoglobin 10.6 g/dL (12.0-15.0); Mean Corp Hgb Conc 33.2 g/dL (32-36); Mean Corpuscular Volume 99.4 fL (81-99); Mean Platelet Vol. 11.5 fl (6.2-12.0); Platelet Count 218 K/mm3 (150-450); RBC Distribution Width CV 13.8 % (11.6-14.6); Red Blood Count 3.21 M/mm3 (4.2-5.4); White Blood Count 5.1 K/mm3 (4.4-11.0)
[2024-06-07 09:55] LABS: Anion Gap 4 (5-15); BUN 28 mg/dL (7-18); BUN/Creat Ratio 33.2 RATIO (10-20); Calcium,Total 9.3 mg/dL (8.5-10.1); Chloride 111 mmol/L (98-107); Creatinine, Serum 0.84 mg/dL (0.55-1.02); EST Glomerular Filtration Rate 69 mL/min (>60); Est Glom Filt Rate - Afr Amer 83 mL/min (>60); Glucose 94 mg/dL (74-106); Magnesium 2.1 mg/dL (1.6-2.6); Potassium 4.3 mmol/L (3.5-5.1); Sodium Level 143 mmol/L (136-145)
== END ==
LOC: OLS.SW 05:00
PROVIDERS: PCP Physician Assistant; Visit Provider Internal Medicine
DX: G30.9 Alzheimer's disease, unspecified (principal); F02.80 Dementia in other diseases classified elsewhere, unspecified severity, without behavioral disturbance, psychotic disturbance, mood disturbance, and anxiety; I10 Essential (primary) hypertension; E78.5 Hyperlipidemia, unspecified
CPT/HCPCS: 36415; 80048; 83735; 85027

== ENCOUNTER → 2024-11-22 | Outpatient (REF) | payer MEDICARE, MEDICAID, SELFPAY ==
[2024-11-22 09:51] LABS: Absolute Lymphocyte Count 1.53 X10^3/uL (0.83-4.51); Absolute Neutrophil Count 2.2 X10^3/uL (2.0-7.7); Basophil# 0.02 X10^3/uL; Basophil% 0.5 % (0-1); Eosinophil# 0.15 X10^3/uL; Eosinophils% 3.5 % (0-5); Hematocrit 36.3 % (37-47); Hemoglobin 11.7 g/dL (12.0-15.0); Lymphocyte # 1.53 X10^3/ul (0.83-4.51); Lymphocyte % 35.3 % (19-41); Mean Corp Hgb Conc 32.2 g/dL (32-36); Mean Corpuscular Volume 99.2 fL (81-99); Mean Platelet Vol. 11.4 fl (6.2-12.0); Monocyte# 0.43 X10^3/uL; Monocyte% 9.9 % (0-10); NRBC Flagged by Analyzer 0 % (0-5); Neutrophil % 50.8 % (47-70); Platelet Count 254 K/mm3 (150-450); RBC Distribution Width CV 13.8 % (11.6-14.6); RBC Distribution Width SD 51.4 fl (35.1-43.9); Red Blood Count 3.66 M/mm3 (4.2-5.4); White Blood Count 4.3 K/mm3 (4.4-11.0)
[2024-11-22 09:53] LABS: Microalbumin,Random Urine < 12.0 mg/L (NO RANGE EST.); Microalbumin:Creatinine Ratio UNABLE TO CALCULATE mg/g CRE
[2024-11-22 10:15] LABS: Anion Gap 10 (5-15); BUN 27 mg/dL (4-19); BUN/Creat Ratio 35.4 RATIO (10-20); Calcium,Total 9.6 mg/dL (7.6-11.0); Carbon Dioxide 24.4 mmol/L (21.0-32.0); Chloride 106 mmol/L (98-108); Cholesterol 186 mg/dL (<=200); Creatinine, Serum 0.76 mg/dL (0.70-1.20); EST Glomerular Filtration Rate 78 (>60); Glucose 101 mg/dL (70-99); High Density Lipoprotein 65 mg/dL; Low Density Lipoprotein Calc. 103 mg/dL; Potassium 4.4 mmol/L (3.3-5.1); Sodium Level 140 mmol/L (133-145); T4 Total, Thyroxin 7.2 ug/dL (4.8-13.9); Triglycerides 90 mg/dL; Very Low Density Lipoprotein 18 mg/dL (5-40); cholesterol:hdl ratio screen 2.86
[2024-11-22 11:34] LABS: Hemoglobin A1c 5.7 % (<=5.6)
[2024-11-25 08:15] LABS: Vitamin D,25 Hydroxy 29.7 ng/mL (30-100)
== END ==
LOC: OLS.SW 05:00
PROVIDERS: PCP Physician Assistant; Visit Provider Internal Medicine
DX: I10 Essential (primary) hypertension (principal); E78.5 Hyperlipidemia, unspecified
CPT/HCPCS: 36415; 80048; 80061; 82043; 82306; 82570; 83036; 84436; 84443; 85025

== ENCOUNTER → 2025-04-26 | Outpatient (REF) | payer MEDICARE, MEDICAID, SELFPAY ==
[2025-04-26 09:35] LABS: Hematocrit 34.9 % (37-47); Hemoglobin 11.4 g/dL (12.0-15.0); Mean Corp Hgb Conc 32.7 g/dL (32-36); Mean Corpuscular Volume 97.8 fL (81-99); Mean Platelet Vol. 11.9 fl (6.2-12.0); Platelet Count 205 K/mm3 (150-450); RBC Distribution Width CV 13.6 % (11.6-14.6); RBC Distribution Width SD 48.7 fl (35.1-43.9); Red Blood Count 3.57 M/mm3 (4.2-5.4); White Blood Count 5.1 K/mm3 (4.4-11.0)
[2025-04-26 12:11] LABS: BUN 29 mg/dL (4-19); Glucose 108 mg/dL (70-99)
[2025-04-26 12:12] LABS: Anion Gap 9 (5-15); BUN/Creat Ratio 36.4 RATIO (10-20); Calcium,Total 9.5 mg/dL (7.6-11.0); Carbon Dioxide 24.4 mmol/L (21.0-32.0); Chloride 107 mmol/L (98-108); Cholesterol 136 mg/dL (<=200); Low Density Lipoprotein Calc. 60 mg/dL; Potassium 4.8 mmol/L (3.3-5.1); T4 Total, Thyroxin 6.7 ug/dL (4.8-13.9); Triglycerides 78 mg/dL; Very Low Density Lipoprotein 16 mg/dL (5-40); Vitamin D,25 Hydroxy 33.0 ng/mL (30-100); cholesterol:hdl ratio screen 2.25
== END ==
LOC: OLS.SW 05:00
PROVIDERS: PCP Physician Assistant; Visit Provider Family Medicine
DX: E55.9 Vitamin D deficiency, unspecified (principal); E78.5 Hyperlipidemia, unspecified; I10 Essential (primary) hypertension; F03.90 Unspecified dementia, unspecified severity, without behavioral disturbance, psychotic disturbance, mood disturbance, and anxiety
CPT/HCPCS: 36415; 80048; 80061; 82306; 84436; 84443; 85027